=== PATIENT | male | born 1975 | race Two or more races ===

== ENCOUNTER → 2023-11-10 17:25 | Outpatient (REF) | payer OTHER, SELFPAY | LOC: MRI 17:25 | PROVIDERS: ATTENDING PHYSICIAN Internal Medicine | DX: K76.9 Liver disease, unspecified (principal) | CPT/HCPCS: 74183; A9581 ==

== ENCOUNTER → 2024-03-28 13:55 | Outpatient (REF) | payer OTHER, SELFPAY | LOC: DHSLP 13:55 | PROVIDERS: ATTENDING PHYSICIAN Otolaryngology; FAMILY PHYSICIAN Family Medicine | DX: G47.33 Obstructive sleep apnea (adult) (pediatric) (principal); J35.8 Other chronic diseases of tonsils and adenoids; R06.83 Snoring; J34.3 Hypertrophy of nasal turbinates; J34.2 Deviated nasal septum | CPT/HCPCS: 95806 ==

== ENCOUNTER 2024-10-20 20:25 | Emergency (ER) | payer OTHER, SELFPAY ==
[2024-10-20 20:25] VITALS: BMI 32.1
[2024-10-20 20:40] VITALS: BP 131/67
[2024-10-20 21:01] LABS: % Basophils 0.4 % (0-2); % Eosinophils 1.1 % (0-6); % Immature Granulocytes 0.3 % (0-0.5); % Lymphocytes 26.3 % (20.5-51.1); % Monocytes 11.6 % (1.7-9.3); % Neutrophils 60.3 % (42.2-75.2); Absolute Eosinophils 0.1 10^3/uL (0-0.7); Absolute Lymphocytes 1.8 10^3/uL (1.2-3.4); Absolute Monocytes 0.8 10^3/uL (0.1-0.6); Absolute Neutrophils 4.2 10^3/uL (1.4-6.5); Hematocrit 41.7 % (39.0-52.0); Hemoglobin 13.7 g/dL (13.0-18.0); Mean Corp Hgb Conc. 32.9 g/dL (33.0-37.0); Mean Corpuscular Hgb 29.1 pg (27.0-31.0); Mean Corpuscular Volume 88.7 fL (80.0-94.0); Mean Platelet Volume 9.4 fL (7.4-10.4); Nucleated Red Blood Cells % 0 % (-); Platelet Count 280 10^3/uL (130-400); Red Cell Dist. Width 12.9 % (11.5-14.5)
[2024-10-20 21:15] LABS: ALT (SGPT) 16 U/L (0-50); AST (SGOT) 26 U/L (17-59); Albumin 4.4 g/dl (3.5-5.0); Alkaline Phosphatase 72 U/L (38-126); Blood Urea Nitrogen 16 mg/dl (9-20); Calcium 9.6 mg/dl (8.4-10.2); Carbon Dioxide 29 mmol/L (22-30); Chloride 107 mmol/L (98-107); Glucose 99 mg/dl (70-99); Lipase 83 U/L (23-300); Potassium 4.7 mmol/L (3.5-5.1); Sodium 142 mmol/L (135-145); Total Bilirubin 0.8 mg/dl (0.2-1.3); Total Protein 7.9 g/dl (6.3-8.2); eGFR > 60.00
[2024-10-20 21:25] LABS: Troponin I < 0.012 ng/ml
[2024-10-20 22:22] VITALS: BP 144/86
[2024-10-20 22:28] VITALS: BP 144/86
--- NOTE | 2024-10-20 22:47 | ED.GENMED ---
History of Present Illness
General
Chief Complaint: Abdominal Pain
Source: patient
Exam Limitations: none
Time Seen by Provider: 10/20/24 22:22
Nursing documentation reviewed up to this point in time: agreed with
History of Present Illness
History of Present Illness:
Patient presents to ED secondary to persistent abdominal pain since 10 AM this morning. Abdominal pain described as sharp, in his upper abdomen, with radiation to the back, without any alleviating or exacerbate factors. Patient has had meals since
onset of pain, without change in his symptoms. Denies fever or chills. Denies nausea or vomiting. Denies diarrhea. Denies recent change in bowel habits. denies recent change in medications or diet. Denies. History of similar symptoms.
Denies abdominal surgery. Patient was evaluated at urgent care center who referred patient to ED for further evaluation, secondary to significant abdominal pain. Patient does report that he does 'intense workout', and is wondering whether or not
his symptoms may be musculoskeletal.
Review of Systems
Review of Systems
Allergies reviewed?: Yes
All Other Systems: ROS reviewed and negative except as documented in HPI and ROS
Constitutional: Reports no symptoms; Denies fever
Respiratory: Reports no symptoms
Cardiac: Reports no symptoms
ABD/GI: Reports abdominal pain; Denies nausea or vomiting
Musculoskeletal: Reports no symptoms
Skin: Reports no symptoms
Neurological: Reports no symptoms
Phy Exam
Physical Exam
Physical Exam:
Physical Exam
General: no apparent distress, not acutely ill. afebrile
Head: nc/at. eomi
Neck: supple. normal range of motion.
Heart: s1/s2 regular rate and rhythm
Lungs: no acute respiratory distress. clear bilaterally
Abdomen: normal bowel sounds. not tender. no distention
Neuro: alert and oriented x 3. no focal neurological deficits
Skin: no rash
Psychiatric: well kept. interactive and cooperative
Extremities: no edema. no calf tenderness.
Course
Orders/Labs/Results
Orders:
Orders
10/20/24 20:26
Electrocardiogram (*1) Urgent
Reason for Study: Abdominal Pain
EKG- Treatment ONCE
IV Insert/Care/Rem.- Treatment PRN
10/20/24 20:46
Complete Blood Count/With Diff Urgent
Comprehensive Metabolic Panel Urgent
Lipase Urgent
Troponin I Urgent
10/20/24 22:32
US Abdomen Complete/Upper Urgent
Comment:
Reason For Exam: epigastric pain
10/20/24 22:36
Urinalysis Reflex To Culture Urgent
Date Specimen was Collected: 10/20/24
Time Specimen was Collected: 22:26
Urine Microscopic Reflex Cult Urgent
10/21/24 00:58
CT Abd/pel Without Iv Or Oral Urgent
Comment:
Reason For Exam: abd pain w hematuria
Abnormal Lab Results
10/20/24 10/20/24
20:46 22:36
MCHC 32.9 L g/dL
(33.0-37.0)
Absolute Monos (auto) 0.8 H 10^3/uL
(0.1-0.6)
Monocytes % 11.6 H %
(1.7-9.3)
Ur Occult Blood Reflex 2+ A
(Negative)
Urine RBC 7-10 A /HPF
(0-2)
Urine Bacteria (Reflex) Few A
(Negative)
10/20/24 20:46
10/20/24 20:46
Vital Signs
Initial and Last Documented VS:
Initial Vital Signs
Temp Pulse Resp BP Pulse Ox
98.3 F 64 18 131/67 100
10/20/24 20:40 10/20/24 20:40 10/20/24 20:40 10/20/24 20:40 10/20/24 20:40
Last Documented Vital Signs
Temp Pulse Resp BP Pulse Ox
98.3 F 61 18 134/83 97
10/20/24 20:40 10/20/24 23:15 10/20/24 23:15 10/21/24 02:10 10/20/24 23:15
MDM/Problems Addressed
MDM/Problems Addressed:
Patient remains hemodynamically stable without acute distress during observation. Blood work and abdominal ultrasound unremarkable. However, urinalysis does reveal blood with RBCs noted on differential. As such, CT abdomen pelvis ordered to
evaluate for potential kidney stone as etiology behind his abdominal pain.
CT abdomen pelvis report reviewed and discussed with patient. No acute findings noted. Patient will be discharged home in stable condition, with recommendation to take Tylenol/Motrin for symptomatic relief, along with PCP follow-up as needed.
Advised to return to ED with recurrent/worsening symptoms. Patient expresses understanding at time of discharge
*Pulse Oximetry
Patient hypoxic: no
*Critical Care Note
Total Time (30-74mins, 75-104mins- exclusive of procedures): Not Applicable
ED Attending Note
-
Portions of this chart may have been created with voice recognition software.� Occasional wrong word or��sound alike� substitutions may have occurred due to the inherent limitations of voice recognition software.
Discharge Plan
Departure
Patient Disposition: Home (Routine Discharge)
Date of Disposition: 10/21/24
Time of Disposition: 02:01
Patient with high blood pressure during this ER visit?: Yes
Condition: Good
Discharge Problem:
Abdominal pain
Instructions: Abdominal Pain
Referrals:
Elliot Ballesteros DO [Family Provider, Family Practice]
Activity Restrictions/Additional Instructions:
As discussed, please follow-up with your primary care physician with any further concerns. In ED, blood work and multiple imaging studies did not reveal any abnormal findings.
Interventions
Interventions:
*Risk Screen - Suicide Last Done: 10/20/24 20:40
*General Assessment Last Done: 10/20/24 22:29
*Neglect/Abuse Screening Last Done: 10/20/24 20:40
*ED- Fall Risk Assessment Last Done: 10/20/24 22:29
*Nursing Disposition Last Done: 10/21/24 02:16
UK-Qcxjxy-Iplchagkqq Assessment Last Done: 10/20/24 22:29
Discharge Date and Time
Discharge Date/Time: 10/21/24 02:25
Print Language: SAMI
[2024-10-20 23:52] LABS: Urine Albumin Negative (Neg - Trace); Urine Bilirubin Negative (Negative); Urine Character Clear (Clear); Urine Color Yellow; Urine Glucose Negative (Negative); Urine Ketone Negative (Negative); Urine Leukocyte Negative (Negative); Urine Nitrite Negative (Negative); Urine Occult Blood 2+ (Negative); Urine Specific Gravity 1.005 (<1.030); Urine Urobilinogen Negative (Neg - 1+)
[2024-10-21 00:49] LABS: Urine Bacteria Few (Negative); Urine White Cell 0-2 /HPF (0-5)
[2024-10-21 02:10] VITALS: BP 134/83
== END 2024-10-21 02:25 | disposition home or self-care (01) ==
LOC: EMR 20:25
PROVIDERS: EMERGENCY PHYSICIAN Emergency Medicine; FAMILY PHYSICIAN Family Medicine
DX: R10.9 Unspecified abdominal pain (principal); R03.0 Elevated blood-pressure reading, without diagnosis of hypertension
CPT/HCPCS: 99285; 74176; 76700; 80053; 81003; 81015; 83690; 84484; 85025; 93005

== ENCOUNTER 2024-11-04 13:20 | Emergency (ER) | payer OTHER, SELFPAY ==
[2024-11-04 13:22] VITALS: BP 144/81
[2024-11-04 13:42] LABS: % Basophils 0.1 % (0-2); % Eosinophils 2.1 % (0-6); % Immature Granulocytes 0.6 % (0-0.5); % Lymphocytes 11.1 % (20.5-51.1); % Monocytes 15.4 % (1.7-9.3); % Neutrophils 70.7 % (42.2-75.2); Absolute Eosinophils 0.2 10^3/uL (0-0.7); Absolute Immature Granulocytes 0.1 10^3/uL (0-0.05); Absolute Monocytes 1.4 10^3/uL (0.1-0.6); Absolute Neutrophils 6.3 10^3/uL (1.4-6.5); Hematocrit 35.6 % (39.0-52.0); Hemoglobin 11.6 g/dL (13.0-18.0); Mean Corp Hgb Conc. 32.6 g/dL (33.0-37.0); Mean Corpuscular Hgb 28.3 pg (27.0-31.0); Mean Corpuscular Volume 86.8 fL (80.0-94.0); Nucleated Red Blood Cells % 0 % (-); Platelet Count 326 10^3/uL (130-400); White Blood Cell Count 8.9 10^3/uL (4.8-10.8)
[2024-11-04 14:06] LABS: ALT (SGPT) 57 U/L (0-50); AST (SGOT) 56 U/L (17-59); Albumin 3.2 g/dl (3.5-5.0); Alkaline Phosphatase 185 U/L (38-126); Blood Urea Nitrogen 14 mg/dl (9-20); Calcium 8.6 mg/dl (8.4-10.2); Carbon Dioxide 26 mmol/L (22-30); Chloride 103 mmol/L (98-107); Glucose 125 mg/dl (70-99); Potassium 4.4 mmol/L (3.5-5.1); Sodium 137 mmol/L (135-145); Total Bilirubin 3.1 mg/dl (0.2-1.3); Total Protein 6.7 g/dl (6.3-8.2); eGFR > 60.00
[2024-11-04 14:29] LABS: Urine Albumin 3+ (Neg - Trace); Urine Bilirubin 1+ (Negative); Urine Character Clear (Clear); Urine Color Yellow; Urine Glucose Negative (Negative); Urine Ketone Negative (Negative); Urine Leukocyte Negative (Negative); Urine Nitrite Negative (Negative); Urine Occult Blood 4+ (Negative); Urine Urobilinogen 2+ (Neg - 1+)
[2024-11-04 14:56] LABS: Urine Amorphous Seen; Urine Red Blood Cell >100 /HPF (0-2)
[2024-11-04 15:02] LABS: Urine White Cell 0-2 /HPF (0-5)
[2024-11-04 15:03] LABS: Urine Bacteria Few (Negative)
[2024-11-04 15:19] VITALS: BP 113/67
[2024-11-04] MEDS: NSS 1000 IV (17:51)
[2024-11-04] MEDS: TYLENOL 650 MG PO (17:57)
[2024-11-04 18:28] VITALS: BMI 29.4
--- NOTE | 2024-11-04 19:00 | ED.GENMED ---
History of Present Illness
General
Chief Complaint: Fever
Source: patient
Exam Limitations: none
Time Seen by Provider: 11/04/24 16:51
History of Present Illness
History of Present Illness:
49-year-old male presents complaining of persistent fever myalgias fatigue. He was seen here about 2 weeks ago for abdominal pain had a CT scan of his abdomen at that point which was negative. Abdominal pain has since resolved. He was seen at the
urgent care several times. He was seen at the urgent care today who did an x-ray of his chest and was diagnosed with pneumonia. They also sent him here for evaluation for abnormal blood work. He was told his liver functions were elevated.
Phy Exam
Physical Exam
Physical Exam:
General: Well-appearing male no acute respiratory distress
HEENT: Normocephalic atraumatic
Heart: Regular rate and rhythm
Lungs: Clear no wheeze
Abdomen is soft nontender
Extremities: No cyanosis
Course
Orders/Labs/Results
Orders:
Orders
11/04/24 13:35
Complete Blood Count/With Diff Urgent
Comprehensive Metabolic Panel Urgent
11/04/24 13:36
Urinalysis Reflex To Culture Urgent
Date Specimen was Collected: 11/04/24
Time Specimen was Collected: 13:27
Urine Microscopic Reflex Cult Urgent
11/04/24 17:23
0.9% Sodium Chloride 1000 ml [Nss] 1,000 ml IV BOLUS
11/04/24 17:25
Acetaminophen [Tylenol] 650 mg PO NOW STA
11/04/24 17:50
Lyme Progressive Urgent
Babesia Smear [Blood Parasites] Urgent
TOM Source: Blood/Venous
Specimen Description:
11/04/24 18:47
Doxycycline [Vibramycin] 100 mg PO NOW STA
Abnormal Lab Results
11/04/24 11/04/24
13:35 13:36
RBC 4.10 L 10^6/uL
(4.70-6.10)
Hgb 11.6 L g/dL
(13.0-18.0)
Hct 35.6 L %
(39.0-52.0)
MCHC 32.6 L g/dL
(33.0-37.0)
Abs Immat Gran (auto) 0.1 H 10^3/uL
(0-0.05)
Absolute Lymphs (auto) 1.0 L 10^3/uL
(1.2-3.4)
Absolute Monos (auto) 1.4 H 10^3/uL
(0.1-0.6)
Immature Gran % 0.6 H %
(0-0.5)
Lymphocytes % 11.1 L %
(20.5-51.1)
Monocytes % 15.4 H %
(1.7-9.3)
Glucose 125 H mg/dl
(70-99)
Total Bilirubin 3.1 H mg/dl
(0.2-1.3)
ALT 57 H U/L
(0-50)
Alkaline Phosphatase 185 H U/L
(38-126)
Albumin 3.2 L g/dl
(3.5-5.0)
Ur Occult Blood Reflex 4+ A
(Negative)
Urine Bilirubin 1+ A
(Negative)
Urine Urobilinogen 2+ A
(Neg - 1+)
Urine RBC >100 A /HPF
(0-2)
Urine Bacteria (Reflex) Few A
(Negative)
Urine Albumin (Reflex) 3+ A
(Neg - Trace)
11/04/24 13:35
11/04/24 13:35
Vital Signs
Initial and Last Documented VS:
Initial Vital Signs
Temp Pulse Resp BP Pulse Ox
98.8 F 103 18 144/81 95
11/04/24 13:22 11/04/24 13:22 11/04/24 13:22 11/04/24 13:22 11/04/24 13:22
Last Documented Vital Signs
Temp Pulse Resp BP Pulse Ox
100.9 F H 92 18 113/67 96
11/04/24 15:19 11/04/24 15:19 11/04/24 15:19 11/04/24 15:19 11/04/24 15:19
MDM/Problems Addressed
Differential Diagnosis Includes:
Fever fatigue myalgias recent diagnosis of pneumonia although clinically no respiratory distress or significant cough. Labs reviewed today bilirubin is 3.1 with overall relatively normal transaminases. White count normal hemoglobin did drop
slightly from last visit. Question possible tickborne illness. Babesiosis smear ordered and Lyme test ordered fluids ordered
*Pulse Oximetry
SaO2: 96
Oxygen Mode of Delivery: Room air
Patient hypoxic: no
*Critical Care Note
Total Time (30-74mins, 75-104mins- exclusive of procedures): Not Applicable
Update Note
Update Note:
White count normal hemoglobin down to 11.6 which is decreased from prior visit 2 weeks ago. Bilirubin is slightly elevated but transaminases are normal. CT scan from last visit negative for acute findings including gallstones. I reviewed x-ray of
the chest that was performed today at the urgent care which is read as a left lingular pneumonia. Clinically patient does not have significant cough. Question possible tickborne illness as vitamin differential given elevated LFTs and fever.
Parasite smear was performed which was preliminary was negative. Lyme screen is pending but given the pneumonia on the x-ray of potential tickborne illness we will start on doxycycline. He received his first dose here. No indication for
admission. Stable for discharge
ED Attending Note
-
Portions of this chart may have been created with voice recognition software.� Occasional wrong word or��sound alike� substitutions may have occurred due to the inherent limitations of voice recognition software.
Discharge Plan
Departure
Patient Disposition: Home (Routine Discharge)
Date of Disposition: 11/04/24
Time of Disposition: 19:02
Patient with high blood pressure during this ER visit?: No
Discharge Problem:
Fever
Instructions: Fever, Adult (DC), Pneumonia
Prescriptions:
New
doxycycline hyclate 100 mg capsule
100 mg PO BID Qty: 28 0RF
Referrals:
Elliot Ballesteros DO [Family Provider, Family Practice]
Activity Restrictions/Additional Instructions:
Take doxycycline as directed. Stay hydrated. Continue with ibuprofen or Tylenol for fever or pain. Return here for worsening symptoms otherwise follow-up with your doctor
Interventions
Interventions:
*Risk Screen - Suicide Last Done: 11/04/24 13:22
*General Assessment Last Done: 11/04/24 13:22
*Neglect/Abuse Screening Last Done: 11/04/24 13:22
ED- Neurological Assessment Last Done: 11/04/24 18:28
ED-Skin Assessment Last Done: 11/04/24 18:28
Discharge Date and Time
Print Language: MONGOLIAN
[2024-11-04] MEDS: VIBRAMYCIN 100 MG PO (19:13)
[2024-11-04 19:16] VITALS: BP 115/68
[2024-11-07 14:02] LABS: Lyme Antibody Screen, EIA Presump. Positive (Negative)
== END 2024-11-04 19:19 | disposition home or self-care (01) ==
LOC: EMR 13:20
PROVIDERS: Emergency Medicine; Physician Assistant; EMERGENCY PHYSICIAN Emergency Medicine; FAMILY PHYSICIAN Family Medicine
DX: R50.9 Fever, unspecified (principal)
CPT/HCPCS: 99283; 96360; 80053; 81003; 81015; 85025; 86617; 86618; 87015; 87207

== ENCOUNTER 2024-11-08 13:02 | Inpatient (IN) | payer OTHER, SELFPAY ==
[2024-11-08 10:05] VITALS: BP 125/81
[2024-11-08 10:50] VITALS: BMI 29.0
[2024-11-08 10:55] LABS: Hematocrit 35.0 % (39.0-52.0); Hemoglobin 11.7 g/dL (13.0-18.0); Mean Corp Hgb Conc. 33.4 g/dL (33.0-37.0); Mean Corpuscular Volume 84.3 fL (80.0-94.0); Nucleated Red Blood Cells % 0.3 % (-); Platelet Count 199 10^3/uL (130-400); Red Cell Dist. Width 14.4 % (11.5-14.5)
[2024-11-08 10:56] LABS: Urine Character Clear (Clear)
[2024-11-08 11:11] LABS: INR 1.34; PT 16.8 Sec (11.4-14.6)
[2024-11-08 11:13] VITALS: BP 127/74
--- NOTE | 2024-11-08 11:19 | ED.GENMED ---
History of Present Illness
General
Chief Complaint: Weakness
Source: patient
Time Seen by Provider: 11/08/24 10:56
History of Present Illness
History of Present Illness:
The patient is a 49-year-old male with a history of Lyme disease, presenting with epigastric pain, jaundice, fatigue, and fever. Approximately two weeks ago, while at his [facility] outpatient surgery discharge area, the patient began experiencing severe
epigastric pain radiating to the back. The patient had thought the pain was due to not eating enough and found some relief after eating a substantial meal, though the pain persisted. Fatigue followed, and he eventually sought care at an urgent care
facility, which led to a hospital visit. Blood work, a CT scan, and ultrasounds were performed, initially pointing towards concerns about the pancreas and gallbladder.
After a few days of rest, the patients symptoms subsided. However, upon resuming activities, he developed fever, chills, and dark urine coinciding with increased ambient heat exposure. The patient measured his temperature at home, noting it reached
approximately 100�F, although he suspects his home thermometer may underestimate. Home COVID tests were negative.
Returning to urgent care and was then sent back to the ER where lab results indicated elevated bilirubin, blood, and protein in urine. Doxycycline was administered pending Lyme disease retesting. The patient suspects the doxycycline may be
contributing to recurrent abdominal pain. Pt was treated for Lyme in 2022 with doxy and he tolerated it at that time. Additionally, no recent travel, recreational drug use, or dietary risks like mushroom foraging was reported.
The patient reports occasional shortness of breath and presents with noticeable changes in complexion. He follows up with his physician routinely. Pt has had endoscopies in the past for epigastric pain as well as abdominal MRI which showed hepatic
hemangiomas.
Patient was not taking any [id number] prescription medications prior to the onset of his symptoms 3 weeks ago. The only medication he has taken since then is Tylenol a couple times a day with a maximum ingestion of about 2 g a day, Advil and
the doxycycline that was prescribed. Patient denies any significant alcohol use. He denies recreational drug use.
Phy Exam
Physical Exam
Physical Exam:
General: Awake, Alert, Oriented X3. Mildly tachypneic
Vitals: Mildly tachycardic
Head: Atraumatic
Eyes: Pupils equal, EOMI, scleral icterus noted
Throat: Airway intact, no exudates dry mucosa
Neck: Trachea midline
Lungs: Clear and equal b/l
Heart: Regular rate, no murmurs
Abd: Soft, mild epigastric tenderness, no pulsatile mass
Neuro: Nonfocal
Skin: Warm, dry, no rash, positive jaundice
Extremities: pulses equal b/l, no edema
Course
Orders/Labs/Results
Orders:
Orders
11/08/24 10:48
Acetaminophen Urgent
Comment: ADD ON
CMP [Comprehensive Metabolic Panel] Urgent
Complete Blood Count/With Diff Urgent
Direct Bilirubin Urgent
Comment: ADD ON
Ferritin Urgent
Hepatitis A IgM Antibody Urgent
Hepatitis B Core Ab, IgM Urgent
Hepatitis B Surface Antibody Urgent
Hepatitis B Surface Antigen Urgent
Hepatitis C Antibody Urgent
Iron Urgent
PT/INR [Prothrombin Time] Urgent
Total Iron Binding Urgent
Urinalysis Reflex To Culture Urgent
Date Specimen was Collected: 11/08/24
Time Specimen was Collected: 10:35
Urine Microscopic Reflex Cult Urgent
11/08/24 10:51
Legionella Urinary Antigen Stat
TOM Source: Urine
Specimen Description:
11/08/24 11:14
Add On- LAB Urgent
Tests Added?: acetaminophen level
11/08/24 11:15
CR Chest - 2 Views Urgent
Comment:
Reason For Exam: sob
11/08/24 11:20
Ammonia Urgent
Venous Blood Gas Urgent
%Oxygen/Room Air: ra
11/08/24 12:34
Admit/Transfer Patient As Directed
Co-Sign Provider:
Level of Care: Inpatient admission
Assign to:: Medical/Surgical
Physician / Group: kitty
Diagnosis: progressive jaundice
Reason for Hospitalization: progressive jaundice
Expected length of stay greater than two midnights?: Yes
ELOS- Estimated Length of Stay in days: 2
I certify the patient meets the requirements for IP care: Yes
Code Status As Directed
Resuscitation Status: Full Code
PRN Pain Medication Management As Directed
May give lesser potent ordered pain med per pt: Yes
preference::
Protocol:: Medication orders for pain may be administered in a
manner that supports deferring to patient preference
when the pt is:
- Requesting an ordered lesser potent pain medication.
Least to most potent pain medications are defined
as: acetaminophen < NSAID < tramadol < opioids
(morphine, oxycodone, hydromorphone).
- Requesting a lesser dose of the same medication IF
ORDERED.
- Requesting a less intrusive route of administration
if both routes are prescribed by the provider (PO <
IV).
11/08/24 12:46
Add On- LAB Stat
Tests Added?: direct bilirubin
GASTROINTESTINAL CONSULT Routine
Consulting Provider: Tahira Mejía
Was physician already notified: Yes
11/08/24 12:56
Add On- LAB Urgent
Tests Added?: Urine legionella AG
11/08/24 13:10
Blood Culture Urgent
TOM Source: Blood/Venous
Specimen Description:
11/08/24 13:11
JANY, IgG Reflex to HEp-2 [S] Urgent
[id number] [S] Urgent
CMV IgG Antibody [S] Stat
CMV IgM Antibody [S] Stat
Ceruloplasmin [S] Urgent
Ehrlichia chaffeensis Ab Panel [S] Urgent
Erick-Roy Virus Ab Panel I [S] Stat
Liver-Kidney Microsome Ab-IgG [S] Urgent
Mitochondrial M2 Ab, IgG [S] Urgent
Soluble Liver Antigen Ab [S] Urgent
Babesia Smear [Blood Parasites] Urgent
TOM Source: Blood/Venous
Specimen Description:
11/08/24 14:07
Ibuprofen [Motrin] 400 mg PO Q8HPRN PRN mild pain
11/08/24 Dinner
Regular
At Your Request: Full Participation
11/08/24 15:27
0.9% Sodium Chloride 1000 ml [Nss] 1,000 ml IV 80 mls/hr
Acetaminophen [Tylenol] 650 mg PO Q4HPRN PRN
Ondansetron Injectable [Zofran] 4 mg IV Q6HPRN PRN
11/08/24 15:27
Activity As Directed
Activity Level: As Tolerated
Sequential Compression Device [Pneumatic Compression Sleeves] As Directed
Type: Knee high
Vital Signs As Directed
Frequency: Per unit guidelines
DX Deep Vein Thrombosis Video Routine
DX Deep Vein Thrombosis Video Routine
11/08/24 20:00
Doxycycline [Vibramycin] 100 mg PO BID
11/09/24 06:00
Complete Blood Count/With Diff IN AM
Comprehensive Metabolic Panel IN AM
Abnormal Lab Results
11/08/24 11/08/24
10:48 11:20
WBC 12.0 H 10^3/uL
(4.8-10.8)
RBC 4.15 L 10^6/uL
(4.70-6.10)
Hgb 11.7 L g/dL
(13.0-18.0)
Hct 35.0 L %
(39.0-52.0)
Abs Immat Gran (auto) 0.1 H 10^3/uL
(0-0.05)
Absolute Neuts (auto) 9.1 H 10^3/uL
(1.4-6.5)
Absolute Monos (auto) 1.6 H 10^3/uL
(0.1-0.6)
Immature Gran % 1.2 H %
(0-0.5)
Neutrophils % 75.9 H %
(42.2-75.2)
Lymphocytes % 9.6 L %
(20.5-51.1)
Monocytes % 13.0 H %
(1.7-9.3)
PT 16.8 H Sec
(11.4-14.6)
VBG pCO2 34 L mmHg
(35-48)
VBG pO2 76 H mmHg
(30-50)
VBG HCO3 19.2 L mmol/L
(22-27)
Carbon Dioxide 17 L mmol/L
(22-30)
BUN 29 H mg/dl
(9-20)
Glucose 171 H mg/dl
(70-99)
Calcium 7.4 L mg/dl
(8.4-10.2)
Iron 23 L ug/dl
(49-181)
TIBC 174 L ug/dl
(261-462)
% Saturation 13 L %
(20-50)
Ferritin 572.0 H ng/ml
(17.9-464.0)
Total Bilirubin 9.9 H mg/dl
(0.2-1.3)
Direct Bilirubin 8.9 H mg/dl
(0.0-0.4)
AST 124 H U/L
(17-59)
ALT 82 H U/L
(0-50)
Alkaline Phosphatase 200 H U/L
(38-126)
Ammonia < 9 L umol/L
(9-30)
Total Protein 6.0 L g/dl
(6.3-8.2)
Albumin 2.7 L g/dl
(3.5-5.0)
Ur Occult Blood Reflex 4+ A
(Negative)
Urine Bilirubin 2+ A
(Negative)
Urine Urobilinogen 2+ A
(Neg - 1+)
Urine RBC 7-10 A /HPF
(0-2)
Urine Albumin (Reflex) 2+ A
(Neg - Trace)
Acetaminophen < 10 L ug/ml
(10-30)
11/08/24 10:48
11/08/24 10:48
Vital Signs
Initial and Last Documented VS:
Initial Vital Signs
Temp Pulse Resp BP Pulse Ox
98.0 F 99 18 125/81 98
11/08/24 10:05 11/08/24 10:05 11/08/24 10:05 11/08/24 10:05 11/08/24 10:05
Last Documented Vital Signs
Temp Pulse Resp BP Pulse Ox
98.0 F 92 20 112/76 94
11/08/24 10:05 11/08/24 12:00 11/08/24 12:00 11/08/24 14:03 11/08/24 14:03
MDM/Problems Addressed
Differential Diagnosis Includes:
Biliary obstruction via stone or mass, autoimmune hepatitis, toxin exposure
MDM/Problems Addressed:
Patient presents with progressive jaundice. Alert and shows no evidence of encephalopathy. His INR is not significantly elevated. His platelet count is normal. Unclear what the source of his liver dysfunction is. Patient will require
hospitalization for further imaging and testing. Message sent to gastroenterology to get them on board early.
*Radiology
Radiology exam reviewed: radiology read reviewed
*Pulse Oximetry
SaO2: 95
Oxygen Mode of Delivery: Room air
Patient hypoxic: no
*Critical Care Note
Total Time (30-74mins, 75-104mins- exclusive of procedures): Not Applicable
ED Attending Note
-
Portions of this chart may have been created with voice recognition software.� Occasional wrong word or��sound alike� substitutions may have occurred due to the inherent limitations of voice recognition software.
Discharge Plan
Departure
Patient Disposition: Admit
Date of Disposition: 11/08/24
Time of Disposition: 11:46
Admit to: Med/Surg
Presentation/result/management discussed w/ accepting MD/DO: Hospitalist
Condition: Fair
Discharge Problem:
Hyperbilirubinemia
Interventions
Interventions:
*Risk Screen - Suicide Last Done: 11/08/24 10:05
*General Assessment Last Done: 11/08/24 10:05
*Neglect/Abuse Screening Last Done: 11/08/24 10:05
*ED- Fall Risk Assessment Last Done: 11/08/24 10:52
*ED COVID-19 Vaccine History Last Done: 11/08/24 10:52
ED- Cardiac Assessment Last Done: 11/08/24 10:55
ED- Neurological Assessment Last Done: 11/08/24 10:55
ED- Pulmonary Assessment Last Done: 11/08/24 10:55
[2024-11-08 11:24] LABS: ALT (SGPT) 82 U/L (0-50); AST (SGOT) 124 U/L (17-59); Albumin 2.7 g/dl (3.5-5.0); Alkaline Phosphatase 200 U/L (38-126); Blood Urea Nitrogen 29 mg/dl (9-20); Calcium 7.4 mg/dl (8.4-10.2); Carbon Dioxide 17 mmol/L (22-30); Chloride 106 mmol/L (98-107); Estimated Creatinine Clearance 69 ml/min; Glucose 171 mg/dl (70-99); Potassium 4.2 mmol/L (3.5-5.1); Sodium 135 mmol/L (135-145); Total Protein 6.0 g/dl (6.3-8.2); eGFR > 60.00
[2024-11-08 11:27] LABS: Venous Blood Gas B.E. -5.5 mmol/L (-4 to +4); Venous Blood Gas O2 Sat % 96.4 %
[2024-11-08 11:28] LABS: Acetaminophen < 10 ug/ml (10-30)
[2024-11-08 11:39] LABS: Ammonia < 9 umol/L (9-30)
[2024-11-08 12:13] VITALS: BP 113/74
--- NOTE | 2024-11-08 12:38 | HPS.HSE ---
Family Physician
-
Family Physician: Elliot Ballesteros,
Chief Complaint
-
jaundice
History of Present Illness
49-year-old male past medical history of Lyme disease, presenting with epigastric pain, jaundice and fatigue and fever. 2 weeks ago he began experiencing severe epigastric pain rating to the back. He that the pain was due to not eating and he got
relief after eating although the pain persisted. Fatigue started afterwards and he went to urgent care and eventually came to emergency room here on 10/[address] scan, and abdominal ultrasound which were unremarkable.
After few days abdominal pain subsided. Upon resuming activities he developed fever and chills and dark urine, persistent fatigue and shortness of breath occasional dry cough. His temperature was 100 degrees.
He does frequently travel outside in his neighborhood and backyard but denies any tick bites or rashes.
He was sent back to the emergency room per ER showed elevated bilirubin, blood and protein in the urine. He was found to have pneumonia. He also had rapid Lyme test that was positive attributes to prior Lyme's disease. He was started on
doxycycline for pneumonia. He is having loose stools while on doxycycline.
He has had endoscopy in the past for epigastric pain in 2022 which were negative. He had colonoscopy which was negative. Abdominal MRI which showed hepatic angiomas. He was not taking any [id number]-[id number] or prescription medications prior to the
onset of symptoms 3 weeks ago. Only medication he is taking is Tylenol a few times with maximum ingestion of 2 g a day, Advil and doxycycline that was prescribed. He denies alcohol use. Denies any drugs. Denies smoking.
His mother and her sister have pancreatic cancer.
Medical History
Past Medical History
Past Medical History: Reports Other (Lyme disease)
Past Surgical History: Reports None
Social History
Tobacco: Non-smoker
Alcohol: None
Drug: None
Family History
Family History: Not pertinent
Allergies / Home Medications
Allergies reflects when Allergies were last updated in [facility].
Home Medications with original date entered in [facility]
Allergy/Medication List:
Allergies
Allergy/AdvReac Type Severity Reaction Status Date / Time
Sulfa (Sulfonamide Allergy Unknown Verified 11/08/24 10:05
Antibiotics)
Home Medications
doxycycline hyclate 100 mg capsule 100 mg PO BID #28 caps 11/04/24
ibuprofen 200 mg tablet (Advil) 400 mg PO Q8HPRN PRN mild pain 11/08/24
Review of Systems
-
History Source: Patient
A 12 point ROS was completed and negative except as noted: Yes
Constitutional: Reports No Symptoms
EENT: Reports No Symptoms
Respiratory: Reports See HPI
Cardiac: Reports No Symptoms
Abdomen/GI: Reports See HPI
: Reports See HPI
Musculoskeletal: Reports No Symptoms
Skin: Reports No Symptoms
Neurological: Reports No Symptoms
Endocrine: Reports No Symptoms
Hematologic/Lymphatic: Reports No Symptoms
Psych: Reports No Symptoms
Physical Exam
Vital Signs
Vital Signs
Temp Pulse Resp BP Pulse Ox
98.0 F 92 20 113/74 95
11/08/24 10:05 11/08/24 12:00 11/08/24 12:00 11/08/24 12:13 11/08/24 12:15
Physical Exam
General: Well Developed, Well Nourished and No Apparent Distress
HEENT: NormoCephalic, Moist mucous membranes and Atraumatic
Respiratory: Clear
Cardiac: S1/S2 and Regular Rhythm; No Murmur or Rub
GI: Soft, Non Tender, Non Distended and Normal Bowel Sounds; No Organomegaly
Rectal: Deferred by Provider
Musculoskeletal: No Clubbing, No Cyanosis and No Edema
Skin: No Rash
Neuro: Nonfocal/grossly intact
Laboratory Results
-
11/08/24 10:48
11/08/24 10:48
Laboratory Results
PT 16.8 Sec (11.4-14.6) H 11/08/24 10:48
INR 1.34 11/08/24 10:48
Total Bilirubin 9.9 mg/dl (0.2-1.3) H 11/08/24 10:48
AST 124 U/L (17-59) H 11/08/24 10:48
ALT 82 U/L (0-50) H 11/08/24 10:48
Alkaline Phosphatase 200 U/L (38-126) H 11/08/24 10:48
Data Reviewed
-
Lab Data: Labs Reviewed by me
Old Records: Reviewed
Impression/Plan
-
IMPRESSION:
PLAN:
# Progressive jaundice unclear if obstructive process versus autoimmune hepatitis versus other etiologies
- Tylenol level under 10
- Recent CT scan on 10/21 negative
- Recent ultrasound negative
-Check MRCP
-Check Babesia smear, ehrlichiosis
-Check blood cultures
-IV fluids
-Likely needs workup for autoimmune hepatitis and PBC, similar etiologies
- GI consulted
# Resolving left lingular pneumonia
-Chest x-ray shows the pneumonia resolving
- Continue doxycycline
# Positive Lyme screen
# History of prior Lyme's disease
- Lyme screen from 11/04 is presumptive positive likely from prior infection
-No joint pains
- Western blot and IgM pending
- Continue doxycycline which was started 3 days ago on 11/05 for 2 weeks
# Microscopic hematuria likely from underlying liver disease
- As per urinalysis
- Urinalysis also shows albumin
History of hepatic hemangiomas
History of prior epigastric pain
- Worked up with endoscopy which was negative
Full code
DVT prophylaxis-SCDs
Regular diet
--- NOTE | 2024-11-08 13:10 | CM ---
CM reviewed chart and met with pt and bedside in ED.
Lives with in 2 story home, 2 [address], first floor half BA, second floor BR/BA
Independent at baseline , no DME, no hx VN/SNF
PCP: Elliot Ballesteros
Pharmacy: [facility]
Discharge plan: Anticipate home, no needs
[2024-11-08 13:20] LABS: Iron 23 ug/dl (49-181)
[2024-11-08 13:29] LABS: Total Iron Binding Capacity 174 ug/dl (261-462)
[2024-11-08 14:03] VITALS: BP 112/76
[2024-11-08 14:03] LABS: Ferritin 572.0 ng/ml (17.9-464.0)
[2024-11-08] MEDS: MOTRIN 400 MG PO ×2 (14:11→22:47)
--- NOTE | 2024-11-08 14:13 | CON.GI ---
Addendum entered and electronically signed by Tahira Mejía MD 11/08/24 19:45:
I saw and examined the patient.
The residents note was reviewed and I agree with the note.
Comment:
Pt is a 49 y/o man with a hx of multiple cutaneous lipomas, hepatic hemangiomas and cysts, lymes dx who was not feeling well for several weeks with some epigastric pain similar to previous episodes (w/u in past with imaging and egd). He went to
urgent care twice then admitted when he was found to be jaundice also with blood in urine, pneumonia. on doxycycline after symptoms
abd: soft
icteric
oriented
impression
abnl lfts
jaundice
abd pain
plan;
follow lfts and INR closely
full w/u for underlying infectious and noninfectious causes of abnl liver tests/jaundice
MRI with MRCP
urine drug screen
Original Note:
Consultation
-
Date/Time Consultation Requested: 11/08/2024
Date/Time Consultation Performed: 11/08/2024
Requesting Provider: Irma Ayon
Performing Provider: Kaila Mejía
Reason for Consultation: Epigastric pain associated with elevated liver enzymes
Medical History
Chief Complaint / HPI
Chief Complaint: Abdominal pain in epigastric region
History of Present Illness:
Patient is a 49-year-old male, with prior history of multiple lipomas, hepatic hemangiomas and cysts, prior history of Lyme's disease treated in 2019, IBS, who was in usual state of health 2 weeks ago when he developed epigastric pain, which he
initially attributed to not eating anything that morning but it persisted, it radiated to the back but there was no nausea, vomiting, diarrhea, or any other issues so he went to urgent care who then referred him to the ER where he had his abdominal
imaging done that did not reveal anything significant except stable multiple liver hemangioma. He was trying to take it slow and rest, he did had a day where he worked out and humidity for cleaning his garage and that made him feel sick again. He
tried to cope with it but started to feel very tired, fatigued and had developed shortness of breath, low-grade fever with chills and sweats and he felt dehydrated so he went to the urgent care clinic where urine analysis was done that showed
urobilinogen, moderate bilirubin and large amount of blood. In addition a chest x-ray was done and he was diagnosed with pneumonia for which he was prescribed doxycycline 100 mg twice daily.
Today, he was supposed to have an ER follow-up visit with the primary care physician but he noticed that he was having the epigastric pain similar to that initiated his GI workup including the endoscopy and abdominal imaging. In addition he felt
that his urine was very dark in color and he was having multiple episodes of loose stools that were very light in color. He also had nausea but no vomiting. He was evaluated in the ER and his liver enzymes were elevated and blood was noticed in
urine as well.
He does not take any pain medications except for Tylenol. He drinks 2-3 times a year. Has family history of pancreatic cancer in 2 family members
GI consulted for acute onset epigastric pain associated with elevated liver enzymes.
Past Medical History
Past Medical History: Psychiatric (Depression/anxiety) and Other (Lyme disease in 2020, multiple hemangiomas/cysts in liver, multiple lipomas, peritonsillar abscess, sleep apnea)
Past Surgical History: None
Social History
Tobacco: Non-Smoker
Alcohol: Occasional
Drug: None
Personal:
Living: With Family (3 children, 2 sons and 1 daughter)
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
Family History
Family History: Other (Family history of pancreatic cancer in aunt and mother, lung cancer in mother)
Allergies / Home Medications
Allergy/AdvReac Type Severity Reaction Status Date / Time
Sulfa (Sulfonamide Allergy Unknown Verified 11/08/24 10:05
Antibiotics)
�Medication �Instructions �Recorded
doxycycline hyclate 100 mg capsule 100 mg PO BID #28 caps 11/04/24
ibuprofen 200 mg tablet (Advil) 400 mg PO Q8HPRN PRN mild pain 11/08/24
Review of Systems
-
All other systems: A 12 pt ROS was Negative except as stated above in HPI
Vital Signs
Temp Pulse Resp BP Pulse Ox
98.0 F 92 20 113/74 95
11/08/24 10:05 11/08/24 12:00 11/08/24 12:00 11/08/24 12:13 11/08/24 12:15
Physical Exam
Exam
General: Well Developed, Well Nourished, No Apparent Distress and Other (Appearing jaundiced and pale)
HEENT: Moist Mucous Membranes and Other (Pale)
Respiratory: Clear; Negative Wheezes or Rales
Cardiac: S1/S2 and Regular Rhythm; Negative Murmur or Rub
GI: Soft, Non Distended, Normal Bowel Sounds and Tender (Mildly tender in epigastric region)
Musculoskeletal: No Clubbing, No Cyanosis and No Edema
Skin: Warm and Dry
Neuro: Awake and Oriented
Hematologic/Lymphatic: No Lymphadenopathy
Psych: Calm
Results
WBC 12.0 10^3/uL (4.8-10.8) H 11/08/24 10:48
Hgb 11.7 g/dL (13.0-18.0) L 11/08/24 10:48
Hct 35.0 % (39.0-52.0) L 11/08/24 10:48
MCV 84.3 fL (80.0-94.0) 11/08/24 10:48
Plt Count 199 10^3/uL (130-400) D 11/08/24 10:48
Absolute Neuts (auto) 9.1 10^3/uL (1.4-6.5) H 11/08/24 10:48
PT 16.8 Sec (11.4-14.6) H 11/08/24 10:48
INR 1.34 11/08/24 10:48
Sodium 135 mmol/L (135-145) 11/08/24 10:48
Potassium 4.2 mmol/L (3.5-5.1) 11/08/24 10:48
Chloride 106 mmol/L (98-107) 11/08/24 10:48
Carbon Dioxide 17 mmol/L (22-30) L 11/08/24 10:48
BUN 29 mg/dl (9-20) H 11/08/24 10:48
Creatinine 1.2 mg/dL (0.7-1.3) 11/08/24 10:48
Calcium 7.4 mg/dl (8.4-10.2) L 11/08/24 10:48
Total Bilirubin 9.9 mg/dl (0.2-1.3) H 11/08/24 10:48
AST 124 U/L (17-59) H 11/08/24 10:48
ALT 82 U/L (0-50) H 11/08/24 10:48
Alkaline Phosphatase 200 U/L (38-126) H 11/08/24 10:48
Diagnostic Image Results:
Prior GI Procedures:
EGD:
Colonoscopy:
Assessment / Plan
-
Impression
This is a [id number][age]-year-old male who presents with complaining of epigastric pain associated with jaundice, dark urine, light-colored stools and elevated liver enzymes. GI consulted for evaluation of elevated liver enzymes
Assessment/plan
Elevated liver enzymes
Jaundiced
10/21 CT abdomen/pelvis
IMPRESSION:
No acute findings in the abdomen or pelvis, specifically no evidence of renal calculus.
Moderate colonic stool burden without evidence of obstruction.
Scattered hepatic hypodensities previously characterized as cysts and hemangiomas on prior MRI.
Stable hemoglobin
Bilirubin and urine
Resolving pneumonia, stable elevated right hemidiaphragm
Continue to trend liver enzymes
Screen for hepatitis A
Autoimmune profile including JANY, AMA, ASMA
MRI with MRCP
Fractionated bilirubin
Urine drug screen
INR
Alpha-1 antitrypsin screening
Follow labs including CBC CMP and INR
If liver enzymes continue to rise disproportionately-consider transfer to printed circuit board panels developer
Follow the workup and manage appropriately
If workup nonconclusive-would need to proceed with liver biopsy
-
-
Thank you for consultation and allowing me to participate in the patient's care. Please call the real estate operations manager GI physician during the after hours with any questions or concerns.
[2024-11-08 15:16] LABS: Hepatitis C Antibody Negative (Negative)
[2024-11-08] MEDS: NSS 1000 IV (15:38)
[2024-11-08 17:10] LABS: Hepatitis B Surface Antigen Negative (Negative)
[2024-11-08 18:00] VITALS: BMI 28.3
[2024-11-08 18:06] VITALS: BP 127/79
[2024-11-08] MEDS: VIBRAMYCIN 100 MG PO (20:17)
[2024-11-08 23:00] VITALS: BP 127/76
[2024-11-09] MEDS: NSS 1000 IV ×2 (03:59→17:12)
[2024-11-09 07:00] LABS: Hematocrit 33.5 % (39.0-52.0); Hemoglobin 11.1 g/dL (13.0-18.0); Mean Corp Hgb Conc. 33.1 g/dL (33.0-37.0); Mean Corpuscular Volume 84.8 fL (80.0-94.0); Platelet Count 150 10^3/uL (130-400); Red Cell Dist. Width 14.5 % (11.5-14.5)
[2024-11-09 07:18] LABS: ALT (SGPT) 80 U/L (0-50); AST (SGOT) 100 U/L (17-59); Albumin 2.5 g/dl (3.5-5.0); Alkaline Phosphatase 193 U/L (38-126); Blood Urea Nitrogen 31 mg/dl (9-20); Calcium 7.7 mg/dl (8.4-10.2); Carbon Dioxide 23 mmol/L (22-30); Chloride 110 mmol/L (98-107); Estimated Creatinine Clearance 75 ml/min; Glucose 91 mg/dl (70-99); Potassium 4.2 mmol/L (3.5-5.1); Sodium 138 mmol/L (135-145); Total Protein 5.7 g/dl (6.3-8.2); eGFR > 60.00
[2024-11-09 07:20] LABS: Absolute Neutrophils -Man Diff 8.1 10^3/uL (1.4-6.5)
[2024-11-09 07:21] LABS: Normal RBC Morphology No; Platelets Checked Yes; Smudge Cells Occasional; Total Cells Counted 100; Vacuolated Segs 1+
[2024-11-09 07:45] VITALS: BP 119/81
[2024-11-09 08:19] LABS: INR 1.28; PT 16.5 Sec (11.4-14.6)
--- NOTE | 2024-11-09 09:34 | W.PN.GI.CBS2 ---
Addendum entered and electronically signed by Tahira Mejía MD 11/09/24 12:12:
I saw and examined the patient.
The residents note was reviewed and I agree with the note.
Comment:
Pt with formed stool, nervous, MRI with no stones, similar cysts/hemangiomas, new hepatosplenomegaly
icteric
oriented
INR 1.28
bilirubin 12
impression:
jaundice
abnl lfts
hepatosplenomegaly (new)
Plan:
INR mildly improved, will follow
w/u in progress will add babesiosis, leptospirosis and consult ID
monitor labs and mental status
if all negative consider hematology
Original Note:
Today's Communication / Plan
-
ID consult
Follow autoimmune profile, ceruloplasmin levels, alpha 1 antitrypsin screen, iron studies
Continue to trend liver enzymes
Consider transfer to slitter helper
Assessment / Plan
-
Impression
This is a 25-[id number][id number]-year-old male who presents with complaining of epigastric pain associated with jaundice, dark urine, light-colored stools and elevated liver enzymes. GI consulted for evaluation of elevated liver enzymes
Assessment/plan
Liver enzymes are trending up
Hepatitis A, B, C-negative
Bilirubin 12
INR normal
Urine drug screen negative
Autoimmune profile including JANY, AMA, ASMA pending
Ceruloplasmin pending
Alpha 1 antitrypsin pending
Jaundiced
10/21 CT abdomen/pelvis
IMPRESSION:
No acute findings in the abdomen or pelvis, specifically no evidence of renal calculus.
Moderate colonic stool burden without evidence of obstruction.
Scattered hepatic hypodensities previously characterized as cysts and hemangiomas on prior MRI.
Stable hemoglobin
Bilirubin and urine
Resolving pneumonia, stable elevated right hemidiaphragm
11/09 MRI abdomen
IMPRESSION:
Hepatosplenomegaly which is new from prior examination and may be infectious/inflammatory or hematologic in nature. There are stable appearance of the scattered hepatic cysts as well as the hemangioma within the right hepatic lobe.
Continue to trend liver enzymes
Follow labs
ID consult
Liver biopsy
Consider transfer to slitter helper
Subjective
Subjective
Date of Service: November 09, 2024
Patient seen and examined at bedside
Appearing pale and jaundiced, no apparent distress
Reports abdominal pain, 10/18, denies any nausea or vomiting
Objective
Data Reviewed
Laboratory Data:
Laboratory Results
11/09/24 06:11
11/09/24 06:11
Laboratory Results
PT 16.5 Sec (11.4-14.6) H 11/09/24 07:41
INR 1.28 11/09/24 07:41
Total Bilirubin 12.0 mg/dl (0.2-1.3) H 11/09/24 06:11
AST 100 U/L (17-59) H 11/09/24 06:11
ALT 80 U/L (0-50) H 11/09/24 06:11
Alkaline Phosphatase 193 U/L (38-126) H 11/09/24 06:11
Vital Signs and I&O:
Vital Signs
Temp Pulse Resp BP Pulse Ox
98.9 F 99 14 119/81 94
11/08/24 23:00 11/09/24 07:45 11/09/24 07:45 11/09/24 07:45 11/09/24 07:45
I&O
11/08/24 11/09/24 11/10/24
06:59 06:59 06:59
Intake Total 720 / 720
Output Total 300 / 300
Balance 420 / 420
Physical Exam
Physical Exam
HEENT: Moist mucous membranes and Other (Appearing pale and jaundiced)
Cardiology: Normal Sinus Rhythm, S1 and S2
Pulmonary: Clear
GI: Soft, Non Distended, Tender (In epigastric region) and Normal Bowel Sounds
Extremities: No Edema and Pulses Present
Neuro: Non Focal
[2024-11-09] MEDS: MOTRIN 400 MG PO ×2 (09:37→19:52)
[2024-11-09] MEDS: VIBRAMYCIN 100 MG PO ×2 (09:37→19:52)
--- NOTE | 2024-11-09 10:15 | PTCARENOTE ---
0745 Received orders on pt for Stool to r/o C-Diff. PT will be moved to a private room.
--- NOTE | 2024-11-09 10:16 | PTCARENOTE ---
Pt moved to private room after he returned from MRI. Pt aware stool specimen is needed. Report given to SHIVAM Shipman. All belongings with pt.
[2024-11-09 12:24] LABS: Reticulocyte Count 0.9 % (0.4-2.8)
--- NOTE | 2024-11-09 12:39 | CON.ID ---
Consultation
-
Date/Time Consultation Requested: [id number]
Date/Time Consultation Performed: 11/09/2024 1137
Requesting Provider: Dr. Kinsey
Performing Provider: Dr. Tinsley
Reason for Consultation: Elevated bilirubin, hepatitis
Chief Complaint / Past History
History of Present Illness
Warren Villalobos is a 49-year-old man being evaluated at the request of Dr. Kinsey regarding transaminitis and hyperbilirubinemia. History is obtained from chart review, along with patient interview.
The patient reports that he was in his usual state of health until approximately 10/20/2024, when he developed acute onset of upper abdominal discomfort, with some radiation to his back. He initially was seen at a local urgent care center, and sent
to the emergency room for further evaluation. At that point in time he was noted to have a small degree of blood in the urine, but no other findings. He was advised to follow back with his PCP.
Later, he presented back to the urgent care center secondary to reported shortness of breath, and was diagnosed with pneumonia., And sent back to the emergency room. At this point in time he admitted to some fevers and myalgias, but his abdominal
pain improved. By this time, he had been found to have mild elevation in his LFTs, along with his bilirubin. In the ER he was found to be febrile to 100.9 degrees. There was concern for possible tickborne illness, and he was started on
doxycycline and sent home. He followed back with his PCP on 11/08, but in the office he was noted to be quite jaundiced, and was sent back to the emergency room for further evaluation.
Here, he was found to have a low-grade leukocytosis. He was now noted to have a marked increase in his bilirubin. Infectious Diseases asked to comment upon further antimicrobial therapy and diagnostic workup.
The patient reports fevers at home up to 101 degrees. He has no history of recent travel. 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
He does note that he recently has embarked on home renovation, which includes some demolition. He has been significant amount of time recently cleaning out rooms, and has noted mouse droppings.
Past History
Past Medical History: None
Past Surgical History: None
Allergy History:
Sulfa (Sulfonamide Antibiotics) Allergy (Verified 11/08/24 10:05)
Unknown
Medications Reviewed: Yes
Current Antibiotics:
Doxycycline
Social History
Tobacco: Non-Smoker
Alcohol: None
Drug: None
Personal:
Living: With Family
Employment: Employed
Review of Systems
Vital Signs
Temp Pulse Resp BP Pulse Ox
98.9 F 99 14 119/81 94
11/08/24 23:00 11/09/24 07:45 11/09/24 07:45 11/09/24 07:45 11/09/24 07:45
Physical Exam
Physical Exam
Constitutional: No Acute Distress, Comfortable and Non-toxic
Eyes: No Conjunctival Hemorrhage and Other (Marked scleral icterus)
Oral: No Thrush and No Ulcers
Cardiovascular: Regular Rate, S1/S2, S3/S4 and Murmur
Pulmonary: Clear and Non Labored; Negative Wheezes or Rales
Gastrointestinal: Non Tender, Non Distended and Normal Bowel Sounds
Extremities: Negative Edema, Clubbing or Cyanosis
Skin: Jaundice (Significant)
Neurological: Awake and Alert
Psychological: Calm
.
Lab / Diagnostic Study Results
11/09/24 06:11
11/09/24 06:11
Abs Immat Gran (auto) 0.1 10^3/uL (0-0.05) H 11/08/24 10:48
Absolute Neuts (auto) 9.1 10^3/uL (1.4-6.5) H 11/08/24 10:48
Absolute Lymphs (auto) 1.2 10^3/uL (1.2-3.4) 11/08/24 10:48
Absolute Monos (auto) 1.6 10^3/uL (0.1-0.6) H 11/08/24 10:48
Absolute Basos (auto) 0.0 10^3/uL (0-0.2) 11/08/24 10:48
Total Counted 100 11/09/24 06:11
Immature Gran % 1.2 % (0-0.5) H 11/08/24 10:48
Neutrophils % 75.9 % (42.2-75.2) H 11/08/24 10:48
Lymphocytes % 9.6 % (20.5-51.1) L 11/08/24 10:48
Monocytes % 13.0 % (1.7-9.3) H 11/08/24 10:48
Eosinophils % 0.1 % (0-6) 11/08/24 10:48
Basophils % 0.2 % (0-2) 11/08/24 10:48
Abs Neuts (Manual) 8.1 10^3/uL (1.4-6.5) H 11/09/24 06:11
Segmented Neutrophils 74 % (42-75) 11/09/24 06:11
Band Neutrophils 10 % (0-3) H 11/09/24 06:11
Lymphocytes (Manual) 8 % (20-51) L 11/09/24 06:11
Eosinophils (Manual) 2 % (0-6) 11/09/24 06:11
PT 16.5 Sec (11.4-14.6) H 11/09/24 07:41
INR 1.28 11/09/24 07:41
Ur Squamous Epith Cells 6-10 /LPF (Few) 11/08/24 10:48
Microbiology Results
Micro:
11/09/24 10:41 Salmonella/Shigella Culture - Pending
Feces/Stool Campylobacter Culture - Pending
Shiga Toxin Test - Pending
Stool Leukocytes - Final
11/09/24 10:41 Cryptosporidium/Giardia - Final
Feces/Stool Negative for Cryptosporidium and/or Giardia Lamblia
antigens.
11/08/24 13:11 Blood Parasites Smear - Final
Blood/Venous
11/08/24 10:51 Legionella Urinary Antigen - Final
Urine Negative for Legionella pneumophila Serogroup 1 antigen.
A negative result does not rule out the possiblity of
Legionella infection due to other serogroups or species of
Legionella. Clinical correlation is recommended.
11/08/24 13:10 Blood Culture - Pending
Blood/Venous
Imaging:
11/08/2024 Lingular opacity appears slightly improved in comparison to recent prior study. There is no new parenchymal opacification or vascular congestion. Mild elevation of the right hemidiaphragm is stable the cardiomediastinal silhouettes are
within the limits of normal. There is no pneumothorax, pleural effusion or mediastinal shift.
Assessment / Plan
Hyperbilirubinemia
Transaminitis
Leukocytosis; improved
Fever
Recommendations:
Continue with doxycycline 100 mg PO q12h
Trend LFT's / Bilirubin
Monitor white count and temperature curve. Follow for development of any further pulmonary symptoms.
Serology for leptospirosis has been sent. Will investigate as to whether PCR testing is available. (None available from usual [facility] reference lab).
Await other serologies.
[2024-11-09 12:54] LABS: LDH 1551 U/L (120-246)
[2024-11-09 15:00] VITALS: BP 115/72
[2024-11-09 17:28] LABS: LDH 1447 U/L (120-246)
--- NOTE | 2024-11-09 18:22 | W.PN.HOSP.TC ---
Addendum entered and electronically signed by Sheldon Anderson MD 11/09/24 22:37:
Attending Addendum-
I saw and evaluated the patient. I reviewed the resident�s note and agree with findings and plan as documented in the resident�s note. Sub: patient continues to feels weak and sluggish today. Denies fevers chills NV abd pain. Full 12 point ROS
reviewed and negative except as documented Exam: Vitals reviewed in chart GEN-jaundiced HEENT scleral icterus b/l heart RRR no MRG lungs CTA B/L abd mildly distended ND pos BS LE no edema Skin no rash appreciated, jaundiced
Plan:
#Conjugated Hyperbilirubinemia/Jaundice/Transaminitis - New
-MRCP-Hepatosplenomegaly which is new from prior examination, may be infectious/inflammatory or hematologic in nature. There are stable appearance of the scattered hepatic cysts as well as the hemangioma within the right hepatic lobe.
-Mildly enlarged right upper quadrant lymph nodes with a 1.3 cm portacaval lymph node, possibly reactive.
- with HSM suggests infiltrative disease
- Babesia smear, ehrlichiosis-P
- Total bili and direct increasing
- r/o EBV/CMV/HIV
- blood cultures-P
- IV fluids
- workup for autoimmune hepatitis and PBC-P
- GI input and ID input appreciated
- c/s heme onc will need to r/o early stage hematologic malignancy
- check periph smear misael
- monitor closely for HLH
# Resolving left lingular pneumonia
-Chest x-ray shows the pneumonia resolving
-Continue doxycycline
# Positive Lyme screen
# History of prior Lyme's disease
- Lyme screen from 11/04 is presumptive positive
- No joint pains
- Western blot- pending
- Continue doxycycline which was started 3 days ago on 11/05 for 2 weeks
# Microscopic hematuria likely from underlying liver disease
- As per urinalysis
- Urinalysis also shows bilirubin
History of hepatic hemangiomas
Full code
DVT prophylaxis-SCDs
Regular diet
ACP
Patient consented to discuss, was alone, time spent explanation of advance directives, changes in health status, patient�s health care wishes if the patient becomes unable to make health decisions, goals of care, code status, and prognosis, 'of
course i wanna be full code'- 16minutes
Time spent coordinating care, review of plan of care with resident, personally reviewed previous records in EMR, med rec, labs, radiology, d/w nursing, total time documented is exclusive of any additional time listed that was spent in advance care
planning discussion -�53 minutes
Original Note:
Today's Communication/Plan
-
Monitor patient's clinical status as various testing is completed to determine etiology of jaundice.
Continue Doxycycline for PNA.
Assessment / Plan
Assessment / Plan
# Progressive jaundice - etiology unclear - infectious vs obstructive vs malignancy, etc.�
-Recent CT scan on 10/21 negative�
-Recent ultrasound negative�
-MRI abdomen: Hepatosplenomegaly. Mildly enlarged right upper quadrant lymph nodes with a 1.3 cm portacaval lymph node. Stable appearance of hepatic cysts and hemangioma.
-Babesia smear, ehrlichiosis - PENDING�
-Blood Cultures: PENDING�
-EBV, CMV, a1AT, JANY, Ceruloplasmin, HIV - PENDING
-TBili 12.0, Direct Bili 10.5, AST 100, ALT 80
-IV fluids�
-GI, ID consulted
�
# Resolving left lingular pneumonia�
-Chest x-ray shows the pneumonia resolving (11/04-11/08)�
-Continue doxycycline 100 mg PO BID Day 09/21�
�
#Anemia
Hgb 11.1
Monitor H&H
# Positive Lyme screen�
# History of prior Lyme's disease�
-Lyme screen from 11/04 is presumptive positive likely from prior infection�
-No joint pains
-Lyme screen - positive
-Western blot - PENDING�
-Continue doxycycline 100 mg PO BID Day 09/21�
�
# Microscopic hematuria likely from underlying liver disease�
-As per urinalysis�
-Urinalysis also shows albumin
�
History of hepatic hemangiomas�
�
History of prior epigastric pain�
-Worked up with endoscopy in 2022, which was negative�
�
Full code�
DVT prophylaxis-SCDs �
Regular diet�
Anticipated Discharge: > 48 hours
Subjective/Interval History
-
Date of Service: November 09, 2024
Patient seen at the bedside on hospital day #2. Nursing reports NAEO. CARRION. Patient is feeling poorly today.
Objective Data
-
Labs:
Laboratory Results
11/09/24 11/09/24
06:11 07:41
WBC 9.7
Hgb 11.1 L
Hct 33.5 L
Plt Count 150 D
PT 16.5 H
INR 1.28
Sodium 138
Potassium 4.2
Chloride 110 H
Carbon Dioxide 23
BUN 31 H
Creatinine 1.1
Glucose 91
Calcium 7.7 L
Total Bilirubin 12.0 H
AST 100 H
ALT 80 H
Alkaline Phosphatase 193 H
Vital Signs:
Vital Signs
Temp Pulse Resp BP Pulse Ox
98.3 F 96 17 115/72 94
11/09/24 15:00 11/09/24 15:00 11/09/24 15:00 11/09/24 15:00 11/09/24 15:00
I&O
11/08/24 11/09/24 11/10/24
06:59 06:59 06:59
Intake Total 720 / 720 0 / 2300
Output Total 300 / 300
Balance 420 / 420 2300 / 2300
Review of Systems
-
History Source: Patient
Constitutional: Reports Fatigue, Night Sweats and Chills
Respiratory: Reports Trouble Breathing; Denies Cough
Cardiac: Denies Chest Pain
Abdomen/GI: Reports Abdominal Pain
Skin: Reports Other (Jaundiced)
Physical Exam
-
General: No Apparent Distress and Conversant
HEENT: Normocephalic and Atraumatic
Respiratory: Clear to Auscultation
Cardiac: Regular Rhythm; Negative Murmur, Rub or Gallop
GI: Soft and Tender (Epigastrium)
Musculoskeletal: No Edema
Skin: Jaundice
Neuro: Other (Scleral icterus)
Psych: Calm
Data Reviewed
-
Diagnostic Radiology: Report Reviewed by me
MRI: Report Reviewed by me
Labs: Labs Reviewed by me
[2024-11-09 23:15] VITALS: BP 121/76
[2024-11-10] MEDS: NSS 1000 IV ×2 (05:20→17:58)
[2024-11-10 06:48] LABS: Hematocrit 27.9 % (39.0-52.0); Hemoglobin 9.6 g/dL (13.0-18.0); Mean Corp Hgb Conc. 34.4 g/dL (33.0-37.0); Mean Corpuscular Volume 83.5 fL (80.0-94.0); Nucleated Red Blood Cells % 0 % (-); Platelet Count 110 10^3/uL (130-400); Red Cell Dist. Width 14.6 % (11.5-14.5)
[2024-11-10 07:14] LABS: Blood Urea Nitrogen 28 mg/dl (9-20); Calcium 7.3 mg/dl (8.4-10.2); Carbon Dioxide 21 mmol/L (22-30); Chloride 114 mmol/L (98-107); Estimated Creatinine Clearance 92 ml/min; Glucose 94 mg/dl (70-99); Potassium 3.8 mmol/L (3.5-5.1); Sodium 139 mmol/L (135-145); eGFR > 60.00
[2024-11-10 07:26] VITALS: BP 123/73
[2024-11-10] MEDS: VIBRAMYCIN 100 MG PO ×2 (08:19→20:07)
[2024-11-10 08:58] LABS: INR 1.26; PT 16.3 Sec (11.4-14.6)
[2024-11-10 09:22] LABS: ALT (SGPT) 59 U/L (0-50); AST (SGOT) 66 U/L (17-59); Alkaline Phosphatase 182 U/L (38-126)
--- NOTE | 2024-11-10 09:55 | CM ---
CM following for discharge planning. Pt admitted after about 3 weeks of not feeling well, seen at urgent care twice, and with fever and new jaundice was sent to the ED for evaluation.
At baseline pt is (I) amb and adls, lives with spouse.
Plan: CM will follow to coordinate all discharge planning needs as identified through hospitalization.
--- NOTE | 2024-11-10 10:16 | W.PN.GI.CBS2 ---
Addendum entered and electronically signed by Tahira Mejía MD 11/10/24 14:01:
I saw and examined the patient.
The [employer] TE[employer]ER or PA's note was reviewed and I agree with the note.
Comment:
Pt feeling better, less sob but overall still without great appetite
oriented
icteric
indication
jaundice/hyperbilirubinemia
hepatosplenomegaly
pneumonia
Plan:
1. bilirubin appears to have peaked as same today; INR still ok; continue to follow closely; pt aware he would need transfer if liver function worsens
2 Infectious w/u in process, so far primary liver disease w/u negative
3 ID following, on doxycycline
4. Heme following as well
5. diet as toleratd
Original Note:
Today's Communication / Plan
-
Etiology of multiple symptoms with marked elevated bilirubin unclear-infectious vs non infectious(liver, heme) process- vs other
babesiosis(neg parasite smear) , leptospirosis(IgM and DNA PCR pending), Brucella ab(pending), CMV/EBV pending, legionella neg
liver work up : hepatitis neg, liver serology - JANY, AMA, SLA, LKM, A1At, ceruloplasmin pending
HIV pending
cdiff cancelled, Ecoli, Giardia, crypto neg other cx pending
appreciate ID eval and for heme eval today with increased LDH and drop in platelets
remains on Doxy - abx per ID
cont regular diet as tolerated
Consider transfer to clinical research nurse if further liver decompensation -- INR current stable but some drop in platelets -trend LFT's, CBC, and INR closely
Assessment / Plan
-
Patient is a 49-year-old male, with prior history of multiple lipomas, hepatic hemangiomas and cysts, prior history of Lyme's disease treated in 2019, IBS, who was in usual state of health 2 weeks ago when he developed epigastric pain, which he
initially attributed to not eating anything that morning but it persisted, it radiated to the back but there was no nausea, vomiting, diarrhea, or any other issues so he went to urgent care who then referred him to the ER where he had his abdominal
imaging done that did not reveal anything significant except stable multiple liver hemangioma. He was trying to take it slow and rest, he did had a day where he worked out and humidity for cleaning his garage and that made him feel sick again. He
tried to cope with it but started to feel very tired, fatigued and had developed shortness of breath, low-grade fever with chills and sweats and he felt dehydrated so he went to the urgent care clinic where urine analysis was done that showed
urobilinogen, moderate bilirubin and large amount of blood. In addition a chest x-ray was done and he was diagnosed with pneumonia for which he was prescribed doxycycline 100 mg twice daily. Pt he was supposed to have an ER follow-up visit with
the primary care physician but he noticed that he was having the epigastric pain similar to that initiated his GI workup including the endoscopy and abdominal imaging. In addition he felt that his urine was very dark in color and he was having
multiple episodes of loose stools that were very light in color. He also had nausea but no vomiting. He was evaluated in the ER and his liver enzymes were elevated and blood was noticed in urine as well. He does not take any pain medications
except for Tylenol. No chronic medication or supplement. No recent travel. He drinks 2-3 times a year. Has family history of pancreatic cancer in 2 family members. tox screen neg on admission Tyelenol <10.
10/21 CT abdomen/pelvis
IMPRESSION:
No acute findings in the abdomen or pelvis, specifically no evidence of renal calculus.
Moderate colonic stool burden without evidence of obstruction.
Scattered hepatic hypodensities previously characterized as cysts and hemangiomas on prior MRI.
Stable hemoglobin
Bilirubin and urine
Resolving pneumonia, stable elevated right hemidiaphragm
11/09 MRI abdomen
IMPRESSION:
Hepatosplenomegaly which is new from prior examination and may be infectious/inflammatory or hematologic in nature. There are stable appearance of the scattered hepatic cysts as well as the hemangioma within the right hepatic lobe.
-increased LFT's with marked jaundice and elevated bili and direct bili with mild AST/ALT/alk phos elevation
-PNA
-fever
-microscopic hematuria
-hepatosplenomegaly on imaging
-thrombocytopenia
-hypoalbuminemia
-elevated ferritin
- + lyme with hx prior lyme disease
-hx multiple lipomas
-hepatic hemangiomas
-IBS
PLAN:
Etiology of multiple symptoms with marked elevated bilirubin unclear-infectious vs non infectious(liver, heme) process- vs other
babesiosis(neg parasite smear) , leptospirosis(IgM and DNA PCR pending), Brucella ab(pending), CMV/EBV pending, legionella neg
liver work up : hepatitis neg, liver serology - JANY, AMA, SLA, LKM, A1At, ceruloplasmin pending
HIV pending
cdiff cancelled, Ecoli, Giardia, crypto neg other cx pending
appreciate ID eval and for heme eval today with increased LDH and drop in platelets
remains on Doxy - abx per ID
cont regular diet as tolerated
Consider transfer to clinical research nurse if further liver decompensation -- INR current stable but some drop in platelets -trend LFT's, CBC, and INR closely
Subjective
Subjective
Date of Service: November 10, 2024
t max 99.2 but report sweats overnight, continued jaundice remains on regular diet, denies any new symptoms and slight improvement in resp status with walking to bathroom, denies photophobic or still neck
Objective
Data Reviewed
Laboratory Data:
Laboratory Results
11/10/24 05:54
11/10/24 05:54
Laboratory Results
PT 16.3 Sec (11.4-14.6) H 11/10/24 08:39
INR 1.26 11/10/24 08:39
Total Bilirubin 12.1 mg/dl (0.2-1.3) H 11/10/24 05:54
AST 66 U/L (17-59) H 11/10/24 05:54
ALT 59 U/L (0-50) H 11/10/24 05:54
Alkaline Phosphatase 182 U/L (38-126) H 11/10/24 05:54
Vital Signs and I&O:
Vital Signs
Temp Pulse Resp BP Pulse Ox
99.2 F 94 17 123/73 92
11/10/24 07:26 11/10/24 07:26 11/10/24 07:26 11/10/24 07:26 11/10/24 07:26
I&O
11/09/24 11/10/24 11/11/24
06:59 06:59 06:59
Intake Total 720 / 720 4220 / 4220
Output Total 300 / 300
Balance 420 / 420 4220 / 4220
Physical Exam
Physical Exam
HEENT: Other (marked jaundice sclera but no hemorrhage )
Cardiology: Normal Sinus Rhythm
Pulmonary: Other (decreasesd bases )
GI: Soft, Non Distended and Non Tender
Extremities: No Edema
Neuro: Non Focal
--- NOTE | 2024-11-10 10:41 | CON.ONC ---
Consultation
-
Date Consultation Requested: 11/10/24
Date Consultation Performed: 11/10/24
Impression
Impression
Acute atypical infection
Mild hepatosplenomegaly and regional adenopathy
Acute hepatitis with rising bilirubin
Monocytosis
Thrombocytosis
Splenomegaly
Multifactorial anemia
Plan
Plan
Reactive monocytosis likely secondary to primary illness
Evolving thrombocytopenia likely secondary to primary illness check DIC profile
Indirect bilirubin essentially without elevation which would review aggressive hemolysis
Check ferritin monitor LDH parameters of inflammation
Monitor CBC
Patient History
History of Present Illness
49-year-old male past medical history of Lyme disease, presenting with epigastric pain, jaundice and fatigue and fever. 2 weeks ago he began experiencing severe epigastric pain rating to the back. He that the pain was due to not eating and he got
relief after eating although the pain persisted. Fatigue started afterwards and he went to urgent care and eventually came to emergency room here on 10/[address] scan, and abdominal ultrasound which were unremarkable. He continues to have fever
a, chills, dark urine, fatigue and shortness of breath occasional dry cough. He was sent back to the emergency room per ER showed elevated bilirubin, blood and protein in the urine. Radiologic imaging showed pulmonary infiltrate. A rapid Lyme
test was positive attributes to prior Lyme's disease and he has been on doxycycline for pneumonia. He is having loose stools while on doxycycline. Leading clinical diagnosis differential includes leptospirosis testing pending.
Past-Medical/Surgical History
Past Medical History: None
Past Surgical History: None
Allergy History:
Social History
Tobacco: Non-Smoker
Alcohol: None
Drug: None
Personal:
Living: With Family
Employment: Employed
Patient Medication
�Medication �Instructions �Recorded �Confirmed �Last Taken �Type
doxycycline hyclate 100 mg capsule 100 mg PO BID Infection 11/08/24 11/08/24 11/08/24 History
ibuprofen 200 mg tablet (Advil) 400 mg PO Q8HPRN PRN mild pain 11/08/24 11/08/24 11/08/24 History
Active Medications
Generic Name Dose Route Start Last Admin
Trade Name Freq PRN Reason Stop Dose Admin
Acetaminophen 650 mg 11/08/24 15:27
Acetaminophen 325 Mg Tablet PO 12/06/24 15:26
Q4HPRN PRN
mild pain/THORPE/temp> 100.4F
Doxycycline Hyclate 100 mg 11/08/24 20:00 11/10/24 08:19
Doxycycline 100 Mg Capsule PO 100 mg
BID MAX Administration
Sodium Chloride 1,000 mls @ 80 mls/hr 11/08/24 15:27 11/10/24 05:20
Nss IV 1,000 mls
.[id number] MAX Administration
Ibuprofen 400 mg 11/08/24 14:07 11/09/24 19:52
Ibuprofen 400 Mg Tablet PO 12/06/24 14:06 400 mg
Q8HPRN PRN Administration
mild pain
Ondansetron HCl 4 mg 11/08/24 15:27
Ondansetron 4 Mg/2 Ml Vial IV 12/06/24 15:26
Q6HPRN PRN
nausea and vomiting
Physical Exam
-
Physical Exam
Constitutional: No Acute Distress, Comfortable and Non-toxic
Eyes: No Conjunctival Hemorrhage but scleral icterus noted
Oral: No Thrush and No Ulcers
Cardiovascular: Regular Rate, S1/S2, S3/S4 and Murmur
Pulmonary: Clear and Non Labored; Negative Wheezes or Rales
Gastrointestinal: Non Tender, Non Distended and Normal Bowel Sounds, splenomegaly
Extremities: Negative Edema, Clubbing or Cyanosis
Skin: Jaundice
Neurological: Awake and Alert
Psychological: Calm
Labs
Lab Results
WBC 9.3 10^3/uL (4.8-10.8) 07/03/25 05:54
RBC 3.34 10^6/uL (4.70-6.10) L 11/10/24 05:54
Hgb 9.6 g/dL (13.0-18.0) L 11/10/24 05:54
Hct 27.9 % (39.0-52.0) L 11/10/24 05:54
MCV 83.5 fL (80.0-94.0) 11/10/24 05:54
MCH 28.7 pg (27.0-31.0) 11/10/24 05:54
MCHC 34.4 g/dL (33.0-37.0) 11/10/24 05:54
RDW 14.6 % (11.5-14.5) H 11/10/24 05:54
Plt Count 110 10^3/uL (130-400) L D 11/10/24 05:54
MPV 9.5 fL (7.4-10.4) 11/10/24 05:54
Abs Immat Gran (auto) 0.3 10^3/uL (0-0.05) H 11/10/24 05:54
Absolute Neuts (auto) 5.6 10^3/uL (1.4-6.5) 11/10/24 05:54
Absolute Lymphs (auto) 1.7 10^3/uL (1.2-3.4) 11/10/24 05:54
Absolute Monos (auto) 1.5 10^3/uL (0.1-0.6) H 11/10/24 05:54
Absolute Eos (auto) 0.0 10^3/uL (0-0.7) 11/10/24 05:54
Absolute Basos (auto) 0.0 10^3/uL (0-0.2) 11/10/24 05:54
Immature Gran % 3.7 % (0-0.5) H 11/10/24 05:54
Neutrophils % 60.9 % (42.2-75.2) 11/10/24 05:54
Lymphocytes % 18.5 % (20.5-51.1) L 11/10/24 05:54
Monocytes % 16.5 % (1.7-9.3) H 11/10/24 05:54
Eosinophils % 0.1 % (0-6) 11/10/24 05:54
Basophils % 0.3 % (0-2) 11/10/24 05:54
Creatinine 0.9 mg/dL (0.7-1.3) 11/10/24 05:54
Vital Signs
Vital Signs
Temp Pulse Resp BP Pulse Ox
99.2 F 94 17 123/73 92
11/10/24 07:26 11/10/24 07:26 11/10/24 07:26 11/10/24 07:26 11/10/24 07:26
[2024-11-10 10:48] LABS: Albumin 2.0 g/dl (3.5-5.0); Total Protein 4.8 g/dl (6.3-8.2)
--- NOTE | 2024-11-10 11:41 | W.PN.HOSP.TC ---
Addendum entered and electronically signed by Sheldon Anderson MD 11/10/24 20:50:
Attending Addendum-
I saw and evaluated the patient. I reviewed the resident�s note and agree with findings and plan as documented in the resident�s note. Sub: Feels SOB and weak today. Denies fevers chills NV abd pain. Full 12 point ROS reviewed and negative except as
documented Exam: Vitals reviewed in chart GEN-jaundiced HEENT scleral icterus b/l heart RRR no MRG lungs CTA B/L abd mildly distended ND pos BS LE no edema Skin no rash appreciated, jaundiced
Plan:
#Conjugated Hyperbilirubinemia/Jaundice/Transaminitis - New
-MRCP-Hepatosplenomegaly which is new from prior examination, may be infectious/inflammatory or hematologic in nature. There are stable appearance of the scattered hepatic cysts as well as the hemangioma within the right hepatic lobe.
-Mildly enlarged right upper quadrant lymph nodes with a 1.3 cm portacaval lymph node, possibly reactive.
- with HSM suggests infiltrative disease
- Babesia smear, ehrlichiosis-P
- Total bili and direct increasing
- r/o EBV/CMV/HIV
- blood cultures-NGTD
- IV fluids
- workup for autoimmune hepatitis and PBC-P
- GI input and ID input appreciated
- heme onc input appreciated will need to r/o early stage hematologic malignancy
- check periph smear misael
- doubt HLH with high fibrinogen and mildly elevated ferritin
- viral hepatitis vs heme malig?
- CTM daily CBC CMP
# Anemia with Thrombocytopenia
- likely malig
- plt worsening now down to 110K from 326K
- cont to follow may need BM bx r/o MDS, Leukemia, lymphoma etc
-cont to follow
# Resolving left lingular pneumonia
-Chest x-ray shows the pneumonia resolving
-Continue doxycycline
# Positive Lyme screen
# History of prior Lyme's disease
- Lyme screen from 11/04 is presumptive positive
- No joint pains
- Western blot- pending
- Continue doxycycline which was started 3 days ago on 11/05 for 2 weeks
History of hepatic hemangiomas
Full code
DVT prophylaxis-SCDs
Regular diet
Time spent coordinating care, review of plan of care with resident, personally reviewed records in EMR, med rec, consults, notes, labs, radiology, d/w nursing, GI, onc � 52 mins
Original Note:
Today's Communication/Plan
-
Monitor patient's clinical status as numerous testing is completed related
Assessment / Plan
Assessment / Plan
# Conjugated hyperbilirubinemia - etiology unclear - infectious vs obstructive vs malignancy, etc.�
-MRI abdomen: Hepatosplenomegaly. Mildly enlarged right upper quadrant lymph nodes with a 1.3 cm portacaval lymph node. Stable appearance of hepatic cysts and hemangioma.
-Babesia smear, ehrlichiosis: PENDING
-Blood Cultures: PENDING�
-EBV, CMV, a1AT, JANY, Ceruloplasmin, HIV - PENDING
-Stool cx: PENDING
-TBili 12.1 (12.0 11/09), Direct Bili 11.0 (10.5 11/09), AST 66, ALT 59
-IV fluids
-GI, ID, Heme-onc consulted
�
# Resolving left lingular pneumonia�
-Chest x-ray shows the pneumonia resolving (11/04 vs 11/08)�
-Continue doxycycline 100 mg PO BID Day 10/22
�
#Thrombocytopenia
-Trend CBC
-Monitor patient's clinical status, including bleeding, brusing, petechiae, etc.
-Heme-onc consulted
#Anemia
-Hgb 9.6
-Monitor H&H
-Heme-onc consulted
# Positive Lyme screen�
# History of prior Lyme's disease�
-Lyme screen from 11/04 is presumptive positive likely from prior infection�
-No joint pains
-Lyme screen - positive
-Western blot - PENDING�
-Continue doxycycline 100 mg PO BID Day 10/22�
�
# Microscopic hematuria likely from underlying liver disease�
-As per urinalysis�
-Urinalysis also shows albumin
�
History of hepatic hemangiomas�
History of prior epigastric pain�
-Worked up with endoscopy in 2022, which was negative�
�
Full code�
DVT prophylaxis-SCDs �
Regular diet�
Anticipated Discharge: > 48 hours
Subjective/Interval History
-
Date of Service: November 10, 2024
Patient seen at the bedside hospital day #3. Nursing reports NAEO. Patient states he is 'feeling better than yesterday.' Reports less shortness of breath.
Objective Data
-
Labs:
Laboratory Results
11/10/24 11/10/24
05:54 08:39
WBC 9.3
Hgb 9.6 L
Hct 27.9 L
Plt Count 110 L D
PT 16.3 H
INR 1.26
Sodium 139
Potassium 3.8
Chloride 114 H
Carbon Dioxide 21 L
BUN 28 H
Creatinine 0.9
Glucose 94
Calcium 7.3 L
Total Bilirubin 12.1 H
AST 66 H
ALT 59 H
Alkaline Phosphatase 182 H
Vital Signs:
Vital Signs
Temp Pulse Resp BP Pulse Ox
99.9 F 94 17 123/73 92
11/10/24 11:27 11/10/24 07:26 11/10/24 07:26 11/10/24 07:26 11/10/24 07:26
I&O
11/09/24 11/10/24 11/11/24
06:59 06:59 06:59
Intake Total 720 / 720 4220 / 4220
Output Total 300 / 300
Balance 420 / 420 4220 / 4220
Review of Systems
-
History Source: Patient
Constitutional: Reports Night Sweats; Denies Fever, Fatigue or Chills
Respiratory: Denies Trouble Breathing
Cardiac: Denies Chest Pain
Abdomen/GI: Denies Abdominal Pain or Nausea
Neuro: Reports Headache
Physical Exam
-
General: No Apparent Distress
HEENT: Normocephalic and Atraumatic
Respiratory: Clear to Auscultation and Non Labored Respirations
Cardiac: Regular Rhythm; Negative Murmur, Rub or Gallop
GI: Soft, Normal Bowel Sounds, Tender (Epigastric) and Other
Musculoskeletal: No Edema
Skin: Jaundice
Neuro: AO x 3
Psych: Calm
Data Reviewed
-
Labs: Labs Reviewed by me
--- NOTE | 2024-11-10 14:23 | W.PN.ID1 ---
Date of Service
Date of Service: November 10, 2024
Today's Communication
Continue doxycycline. Await further data.
Assessment / Plan
Hyperbilirubinemia
Transaminitis
Leukocytosis; improved
Fever
Recommendations:
Continue with doxycycline 100 mg PO q12h
Trend LFT's / Bilirubin
Monitor white count and temperature curve. Follow for development of any further pulmonary symptoms.
Serology for leptospirosis has been sent. Urinary leptospirosis PCR sent.
Await other serologies.
Chief Complaint
-: Other (Hyperbilirubinemia)
Subjective / Review of Systems
Patient notes some increase in fatigue today. No other complaints.
Review of Systems: No Fever and No Chills
Vital Signs / Physical Exam
Vital Signs
Vital Signs
Temp Pulse Resp BP Pulse Ox
99.9 F 94 17 123/73 92
11/10/24 11:27 11/10/24 07:26 11/10/24 07:26 11/10/24 07:26 11/10/24 07:26
Physical Exam
Constitutional: No Acute Distress, Comfortable and Non-toxic
Eyes: Other (Scleral icterus)
Cardiovascular: S1/S2; Negative S3/S4
Pulmonary: Non Labored
Gastrointestinal: Soft and Non Distended
Skin: Jaundice
Neurological: Awake and Alert
Objective Data
Lab Data
Lab Results
11/10/24 05:54
11/10/24 05:54
PT 16.3 Sec (11.4-14.6) H 11/10/24 08:39
INR 1.26 11/10/24 08:39
Estimated Creat Clear 92 ml/min 11/10/24 05:54
Total Bilirubin 12.1 mg/dl (0.2-1.3) H 11/10/24 05:54
AST 66 U/L (17-59) H 11/10/24 05:54
ALT 59 U/L (0-50) H 11/10/24 05:54
Alkaline Phosphatase 182 U/L (38-126) H 11/10/24 05:54
Most recent labs reviewed.
Micro Results:
11/08/24 13:10 Blood Culture - Preliminary
Blood/Venous No Growth in 48 hours- Final report to follow
11/09/24 10:41 Salmonella/Shigella Culture - Preliminary
Feces/Stool Culture in Progress
Campylobacter Culture - Preliminary
Culture in Progress
Shiga Toxin Test - Final
No E. coli Shiga Toxin 1 or 2 detected.
Stool Leukocytes - Final
11/09/24 10:41 Cryptosporidium/Giardia - Final
Feces/Stool Negative for Cryptosporidium and/or Giardia Lamblia
antigens.
11/08/24 13:11 Blood Parasites Smear - Final
Blood/Venous
11/08/24 10:51 Legionella Urinary Antigen - Final
Urine Negative for Legionella pneumophila Serogroup 1 antigen.
A negative result does not rule out the possiblity of
Legionella infection due to other serogroups or species of
Legionella. Clinical correlation is recommended.
Imaging:
11/08/2024 Lingular opacity appears slightly improved in comparison to recent prior study. There is no new parenchymal opacification or vascular congestion. Mild elevation of the right hemidiaphragm is stable the cardiomediastinal silhouettes are
within the limits of normal. There is no pneumothorax, pleural effusion or mediastinal shift.
[2024-11-10 14:50] LABS: Fibrinogen 785 MG/DL (199-459)
[2024-11-10 15:42] VITALS: BP 133/79
[2024-11-10] MEDS: TYLENOL 650 MG PO (16:39)
[2024-11-10] MEDS: MOTRIN 400 MG PO (20:14)
[2024-11-11 00:43] VITALS: BP 130/71
[2024-11-11 04:43] LABS: EBV-EA (D) Ab IgG <5.0 U/mL (0.0-10.9); EBV-NA IgG >600.0 U/mL (0.0-21.9); EBV-VCA IgG Antibodies 128.0 U/mL (0.0-21.9); EBV-VCA IgM Antibodies 37.6 U/mL (0.0-43.9)
[2024-11-11 06:27] LABS: ANA, IgG Reflex to HEp-2 None Detected (None Detected)
[2024-11-11 06:45] LABS: Hematocrit 28.8 % (39.0-52.0); Hemoglobin 9.3 g/dL (13.0-18.0); Mean Corp Hgb Conc. 32.3 g/dL (33.0-37.0); Mean Corpuscular Volume 83.7 fL (80.0-94.0); Platelet Count 109 10^3/uL (130-400); Red Cell Dist. Width 14.7 % (11.5-14.5)
[2024-11-11 06:55] LABS: INR 1.25; PT 16.2 Sec (11.4-14.6)
[2024-11-11 07:07] LABS: ALT (SGPT) 79 U/L (0-50); AST (SGOT) 101 U/L (17-59); Albumin 2.0 g/dl (3.5-5.0); Alkaline Phosphatase 239 U/L (38-126); Blood Urea Nitrogen 26 mg/dl (9-20); Calcium 7.4 mg/dl (8.4-10.2); Carbon Dioxide 21 mmol/L (22-30); Chloride 113 mmol/L (98-107); Estimated Creatinine Clearance 83 ml/min; Glucose 94 mg/dl (70-99); Potassium 4.4 mmol/L (3.5-5.1); Sodium 138 mmol/L (135-145); Total Protein 4.8 g/dl (6.3-8.2); eGFR > 60.00
[2024-11-11 08:00] VITALS: BP 128/74
[2024-11-11] MEDS: VIBRAMYCIN 100 MG PO ×2 (08:16→19:48)
--- NOTE | 2024-11-11 08:20 | W.PN.GI.CBS2 ---
Addendum entered and electronically signed by Isis Stein DO 11/11/24 14:17:
Discussed case with hepatology at [facility]. No additional treatment or tests to order at this time. Advised against NAC given likely no benefit and small risk of anaphylaxis. If bili climbs at a rapid rate, will reengage regarding transfer. No need
to transfer at this time.
Original Note:
Today's Communication / Plan
-
follow labs
closely monitor cbc,cmp,lfts and inr
Assessment / Plan
-
Impression
This is a 73-on[age]-h[age]-year-old male who presents with complaining of epigastric pain associated with jaundice, dark urine, light-colored stools and elevated liver enzymes. GI consulted for evaluation of elevated liver enzymes
10/21 CT abdomen/pelvis
IMPRESSION:
No acute findings in the abdomen or pelvis, specifically no evidence of renal calculus.
Moderate colonic stool burden without evidence of obstruction.
Scattered hepatic hypodensities previously characterized as cysts and hemangiomas on prior MRI.
Stable hemoglobin
Bilirubin and urine
Resolving pneumonia, stable elevated right hemidiaphragm
11/09 MRI abdomen
IMPRESSION:
Hepatosplenomegaly which is new from prior examination and may be infectious/inflammatory or hematologic in nature. There are stable appearance of the scattered hepatic cysts as well as the hemangioma within the right hepatic lobe.
-increased LFT's with marked jaundice and elevated bili and direct bili with mild AST/ALT/alk phos elevation
-Resolving pneumonia
-fever
-microscopic hematuria
-hepatosplenomegaly on imaging
-thrombocytopenia
-hypoalbuminemia
-elevated ferritin
- + lyme with hx prior lyme disease
-hx multiple lipomas
-hepatic hemangiomas
-IBS
PLAN:
Etiology of multiple symptoms with marked elevated bilirubin unclear-infectious vs non infectious(liver, heme) process- vs other
babesiosis(neg parasite smear) , leptospirosis(IgM and DNA PCR pending), Brucella ab(pending), CMV/EBV pending, legionella neg
liver work up : hepatitis neg, liver serology - JANY(not detected), AMA, SLA, LKM, A1At, ceruloplasmin pending
HIV negative
cdiff cancelled, Ecoli, Giardia, crypto neg other cx pending
appreciate ID eval and for heme eval today with increased LDH and drop in platelets-elevated fibrinogen
remains on Doxy - abx per ID
cont regular diet as tolerated
Consider transfer to loan documents closer if further liver decompensation -- INR current stable but some drop in platelets -trend LFT's, CBC, and INR closely
Subjective
Subjective
Date of Service: November 11, 2024
Patient seen at bedside
Feels bloated,No appparent distress
Objective
Data Reviewed
Laboratory Data:
Laboratory Results
11/11/24 06:29
11/11/24 06:29
Laboratory Results
PT 16.2 Sec (11.4-14.6) H 11/11/24 06:29
INR 1.25 11/11/24 06:29
Total Bilirubin 13.8 mg/dl (0.2-1.3) H 11/11/24 06:29
AST 101 U/L (17-59) H 11/11/24 06:29
ALT 79 U/L (0-50) H 11/11/24 06:29
Alkaline Phosphatase 239 U/L (38-126) H 11/11/24 06:29
Vital Signs and I&O:
Vital Signs
Temp Pulse Resp BP Pulse Ox
99.4 F 88 22 128/74 95
11/11/24 08:00 11/11/24 08:00 11/11/24 08:00 11/11/24 08:00 11/11/24 08:00
I&O
11/10/24 11/11/24 11/12/24
06:59 06:59 06:59
Intake Total 4220 / 4220 480 / 480
Balance 4220 / 4220 480 / 480
Physical Exam
Physical Exam
HEENT: Other (Pale appearing, jaundiced)
Cardiology: Normal Sinus Rhythm
Pulmonary: Clear
GI: Soft, Non Distended, Non Tender and Normal Bowel Sounds
Extremities: No Edema
Neuro: Non Focal
--- NOTE | 2024-11-11 09:19 | W.PN.HOSP.TC ---
Addendum entered and electronically signed by Sheldon Anderson MD 11/11/24 20:59:
Attending Addendum-
I saw and evaluated the patient. I reviewed the resident�s note and agree with findings and plan as documented in the resident�s note. Sub: Feels less SOB but weaker today. Was febrile overnight. Denies chills NV abd pain. Full 12 point ROS reviewed
and negative except as documented Exam: Vitals reviewed in chart GEN-jaundiced HEENT scleral icterus b/l heart RRR no MRG lungs CTA B/L abd mildly distended ND pos BS Ext- +1 B/L LE edema Skin no rash appreciated, jaundiced
Plan:
#Conjugated Hyperbilirubinemia/Jaundice/Transaminitis - New
-MRCP-Hepatosplenomegaly which is new from prior examination, may be infectious/inflammatory or hematologic in nature. There are stable appearance of the scattered hepatic cysts as well as the hemangioma within the right hepatic lobe.
-Mildly enlarged right upper quadrant lymph nodes with a 1.3 cm portacaval lymph node, possibly reactive.
- with HSM suggests infiltrative disease
- Babesia smear, ehrlichiosis, acute viral hep panel, JANY, EBV/CMV/HIV-neg
- Total bili/direct increasing further with decreasing albumin - transfer to IMU for closer monitoring
- check CMP INR q 12
- blood cultures-NGTD
- workup for autoimmune hepatitis and PBC-P
- GI input and ID input appreciated
- heme onc input appreciated will need to r/o early stage hematologic malignancy - possibly BMbx
- doubt HLH with high fibrinogen and mildly elevated ferritin
- check Doppler hep veins and IVC r/o BC syndrome
- NAC being held for now per GI
- May need to transfer to [facility] if worsening further (encephalopathy, INR > 1.5)
# Anemia with Thrombocytopenia
- likely malig
- plt worsening now down to 109K from 326K
- cont to follow may need BM bx r/o MDS, Leukemia, lymphoma etc
-cont to follow
# Resolving left lingular pneumonia
-Chest x-ray shows the pneumonia resolving
-Continue doxycycline
# Positive Lyme screen
# History of prior Lyme's disease
- Lyme screen from 11/04 is presumptive positive
- No joint pains
- Western blot- pending
- Continue doxycycline which was started on 11/05 for 2 weeks
- ID on board
History of hepatic hemangiomas
Full code
DVT prophylaxis-SCDs
Regular diet
CC Note
Due to a high probability of clinically significant, life-threatening deterioration, the patient required a high level of preparedness to intervene emergently. I personally spent this critical care time directly and personally managing the patient.
This critical care time included obtaining a history; examining the patient; ordering and review of studies and STAT labs; arranging urgent treatment with development of a management plan; evaluation of patient's response to treatment; reassessment;
and, discussions with other providers.
This critical care time was performed to assess and manage the high probability of imminent, life-threatening deterioration that could result in multi-organ failure. It was exclusive of separately billable procedures and treating other patients and
teaching time.
Total critical care time: Approximately 31 minutes
Original Note:
Today's Communication/Plan
-
Evaluate labs, abdominal ultrasound w/ doppler to determine etiology of conjugated bilirubinemia.
Patient will be upgraded to IMU. Monitor clinical status.
Assessment / Plan
Assessment / Plan
# Conjugated hyperbilirubinemia - etiology unclear - infectious vs obstructive vs malignancy, etc.�
-MRI abdomen: Hepatosplenomegaly. Mildly enlarged right upper quadrant lymph nodes with a 1.3 cm portacaval lymph node. Stable appearance of hepatic cysts and hemangioma.
-TBili 13.8 (12.1), Direct Bili 13.2 (11.0), AST 101 (66), ALT 79 (59), Alk Phos 239 (182) trending up (priors in parentheses)
-Patient will be upgraded to the IMU 7/4 due to worsening labs w/ unknown etiology, necessitating more comprehensive monitoring
-Blood Cultures (11/08): NGTD
-HIV, babesia smear, ehrlichiosis, STEC, legionella, cryptosporidium, giardia, Hep A/B/C, CMV: Negative
-Leptospirosis, ceruloplasmin, syphilis, salmonella, campylobacter, shigella: PENDING
-EBV: indicative of prior infection, no acute infection
-Lyme: indicative of prior infection, no acute infection
-LDH elevated (1447), Reticulocytes WNL (0.9), Haptoglobin: PENDING
-INR: 1.25, fibrinogen: 785
-Ceruloplasmin, A1AT: PENDING
-Ammonia level: PENDING
-Abdominal ultrasound w/ doppler: PENDING
-IV fluids
-H/O, GI, ID following
�
# Resolving left lingular pneumonia�
-Chest x-ray shows the pneumonia resolving (11/04 vs 11/08)�
-Continue doxycycline 100 mg PO BID Day 11/21
�
#Thrombocytopenia
-Trend CBC
-Monitor patient's clinical status, including bleeding, brusing, petechiae, etc.
-Heme-onc consulted
#Anemia
-Hgb 9.3
-Monitor H&H
-Heme-onc consulted
# Positive Lyme screen�
# History of prior Lyme's disease�
-Lyme screen from 11/04 is presumptive positive likely from prior infection�
-No joint pains
-Lyme screen - positive
-Western blot - indicative of prior infection, not acute
-Continue doxycycline 100 mg PO BID Day 10/22�
�
# Microscopic hematuria likely from underlying liver disease�
-As per urinalysis�
-Urinalysis also shows albumin
-Urine protein/creatinine ratio: PENDING
�
History of hepatic hemangiomas�
History of prior epigastric pain�
-Worked up with endoscopy in 2022, which was negative�
�
Full code�
DVT prophylaxis-SCDs �
Regular diet�
Anticipated Discharge: > 48 hours
Subjective/Interval History
-
Date of Service: November 11, 2024
Patient is seen OOB and sitting in a chair on hospital day #4. Nursing reports NAEO. Patient states he is 'feeling a little better.' Patient reports he is still short of breath but improving compared to yesterday. Patient reports he slept a lot
yesterday. Patient reports a bloating sensation in his abdomen, though he is no longer having epigastric pain.
Objective Data
-
Labs:
Laboratory Results
11/11/24
06:29
WBC 9.4
Hgb 9.3 L
Hct 28.8 L
Plt Count 109 L
PT 16.2 H
INR 1.25
Sodium 138
Potassium 4.4
Chloride 113 H
Carbon Dioxide 21 L
BUN 26 H
Creatinine 1.0
Glucose 94
Calcium 7.4 L
Total Bilirubin 13.8 H
AST 101 H
ALT 79 H
Alkaline Phosphatase 239 H
Vital Signs:
Vital Signs
Temp Pulse Resp BP Pulse Ox
99.4 F 88 22 128/74 95
11/11/24 08:00 11/11/24 08:00 11/11/24 08:00 11/11/24 08:00 11/11/24 08:00
I&O
11/10/24 11/11/24 11/12/24
06:59 06:59 06:59
Intake Total 4220 / 4220 480 / 480
Balance 4220 / 4220 480 / 480
Review of Systems
-
History Source: Patient
Constitutional: Reports Fever and Chills; Denies Fatigue or Night Sweats
Respiratory: Reports Trouble Breathing (Improving compared to yesterday)
Cardiac: Denies Chest Pain
Abdomen/GI: Denies Abdominal Pain
Genitourinary: Reports Dark Urine
Skin: Denies Itching
Neuro: Denies Headache
Psych: Reports Anxious
Physical Exam
-
General: No Apparent Distress and Comfortable
HEENT: Normocephalic and Atraumatic
Respiratory: Clear to Auscultation and Non Labored Respirations
Cardiac: Regular Rhythm; Negative Murmur, Rub or Gallop
GI: Soft, Nontender and Normal Bowel Sounds
Skin: Jaundice; Negative Other (No bruising or petechiae)
Neuro: AO x 3, No Motor Deficits and Other (EOMI, visual limon intact)
Psych: Calm
Data Reviewed
-
Labs: Labs Reviewed by me and Discussed with Patient
[2024-11-11 13:01] LABS: Ammonia < 9 umol/L (9-30)
[2024-11-11 13:43] LABS: Mitochondrial M2 Ab, IgG 4.3 Units (0.0-24.9)
[2024-11-11 16:02] VITALS: BP 137/73
[2024-11-11 18:39] VITALS: BP 135/78
--- NOTE | 2024-11-11 19:18 | PTCARENOTE ---
Received from 3rd floor, IMU monitors placed- NSR 85 135/78RR23 95% on RAIR. Denies pain, skin icteric. now at bedside, tearful- emotional support provided.
[2024-11-11 20:00] VITALS: BP 133/80
[2024-11-11 22:00] VITALS: BP 133/77
[2024-11-11 22:00] LABS: INR 1.20; PT 15.5 Sec (11.4-14.6)
[2024-11-11 22:11] LABS: ALT (SGPT) 97 U/L (0-50); AST (SGOT) 140 U/L (17-59); Albumin 2.1 g/dl (3.5-5.0); Alkaline Phosphatase 320 U/L (38-126); Blood Urea Nitrogen 22 mg/dl (9-20); Calcium 7.3 mg/dl (8.4-10.2); Carbon Dioxide 20 mmol/L (22-30); Chloride 112 mmol/L (98-107); Estimated Creatinine Clearance 92 ml/min; Glucose 132 mg/dl (70-99); Potassium 4.1 mmol/L (3.5-5.1); Sodium 136 mmol/L (135-145); Total Protein 5.1 g/dl (6.3-8.2); eGFR > 60.00
[2024-11-11 22:39] LABS: LKM-1 Ab (IgG) 1.8 U (0.0-24.9); Soluble Liver Antigen Ab 2.1 U (0.0-24.9)
[2024-11-12] VITALS: BP 129/83
--- NOTE | 2024-11-12 01:23 | PTCARENOTE ---
Pt aaox3, able to make needs known. NSR on monitor. VSS. LFTs remain elevated and continue to rise. Pt skin is jaundiced. No c/o abdominal pain, abdomen soft/nontender. NPO after MN for abdominal US in am. Call hemphill within reach. Care ongoing.
[2024-11-12 02:00] VITALS: BP 120/85
[2024-11-12 03:40] LABS: Hematocrit 28.3 % (39.0-52.0); Hemoglobin 9.4 g/dL (13.0-18.0); Mean Corp Hgb Conc. 33.2 g/dL (33.0-37.0); Mean Corpuscular Volume 84.0 fL (80.0-94.0); Platelet Count 144 10^3/uL (130-400); Red Cell Dist. Width 14.9 % (11.5-14.5)
[2024-11-12 03:52] LABS: Ammonia < 9 umol/L (9-30)
[2024-11-12 04:00] VITALS: BP 127/86
[2024-11-12 05:51] LABS: Nucleated Red Blood Cells % 0 % (-)
[2024-11-12 06:00] VITALS: BP 127/82
[2024-11-12 08:00] LABS: INR 1.11; PT 14.7 Sec (11.4-14.6)
[2024-11-12 08:10] LABS: ALT (SGPT) 116 U/L (0-50); AST (SGOT) 145 U/L (17-59); Albumin 2.1 g/dl (3.5-5.0); Alkaline Phosphatase 359 U/L (38-126); Blood Urea Nitrogen 19 mg/dl (9-20); Calcium 7.7 mg/dl (8.4-10.2); Carbon Dioxide 21 mmol/L (22-30); Chloride 111 mmol/L (98-107); Estimated Creatinine Clearance 103 ml/min; Glucose 76 mg/dl (70-99); Potassium 3.9 mmol/L (3.5-5.1); Sodium 138 mmol/L (135-145); Total Protein 5.3 g/dl (6.3-8.2); eGFR > 60.00
--- NOTE | 2024-11-12 09:02 | W.PN.GI.CBS2 ---
Today's Communication / Plan
-
Supportive care. Awaiting additional results. Continue with Doxycycline
Assessment / Plan
-
49 y.o. male admitted with SOB and jaundice found to have pneumonia, hepatosplenomegaly and significantly elevated liver enzymes with working diagnosis of infectious hepatitis. Since admission, he has clinically improved but LFTs continue to rise
with new anemia and thrombocytopenia, no s/s fulminant liver failure or DIC.
--10/21 CT abdomen/pelvis
IMPRESSION:
No acute findings in the abdomen or pelvis, specifically no evidence of renal calculus.
Moderate colonic stool burden without evidence of obstruction.
Scattered hepatic hypodensities previously characterized as cysts and hemangiomas on prior MRI.
Stable hemoglobin
Bilirubin and urine
Resolving pneumonia, stable elevated right hemidiaphragm
--11/09 MRI abdomen
IMPRESSION:
Hepatosplenomegaly which is new from prior examination and may be infectious/inflammatory or hematologic in nature. There are stable appearance of the scattered hepatic cysts as well as the hemangioma within the right hepatic lobe.
PLAN:
Plan:
1. Continue to monitor LFTs, mental status and coags closely. Tbili with mild improvement today, transaminases overall the same. INR and platelets improving. Mental status intact
2. Autoimmune serologies negative thus far; awaiting remaining infectious studies
3. ID following, continue with Doxycyline
4. Hematology following, overall picture seems consistent with acute infectious process; direct biliurbinemia and hemolysis profile not consistent with DIC
5. Tolerating Diet without issue
6. Discussed with primary team nephrology consult given significant edema and protein in urine
7. syphilis and PETH added, pending
8. Discussed case with hepatology at [facility]. No role for NAC. No need to transfer patient at this time. Agreed with plan above.
Subjective
Subjective
Date of Service: November 12, 2024
Patient doing well, continues to feel better every day. Had formed brown BM last night. Bilirubin improving slightly. Many labs still in process.
Objective
Data Reviewed
Laboratory Data:
Laboratory Results
11/12/24 03:22
Laboratory Results
PT 14.7 Sec (11.4-14.6) H 11/12/24 07:32
INR 1.11 11/12/24 07:32
Total Bilirubin 12.3 mg/dl (0.2-1.3) H 11/12/24 07:32
AST 145 U/L (17-59) H 11/12/24 07:32
ALT 116 U/L (0-50) H 11/12/24 07:32
Alkaline Phosphatase 359 U/L (38-126) H 11/12/24 07:32
Vital Signs and I&O:
Vital Signs
Temp Pulse Resp BP Pulse Ox
98.2 F 89 21 127/82 97
11/12/24 07:30 11/12/24 06:00 11/12/24 06:00 11/12/24 06:00 11/12/24 06:00
I&O
11/11/24 11/12/24 11/13/24
06:59 06:59 06:59
Intake Total 480 / 480
Balance 480 / 480
Physical Exam
Physical Exam
GENERAL: In no acute distress, appears comfortable; +scleral icterus
ABDOMEN: +BS; soft, non-tender and non-distended; no rebound or guarding
SKIN: +Jaundice
--- NOTE | 2024-11-12 09:38 | W.PN.ID1 ---
Date of Service
Date of Service: November 12, 2024
Today's Communication
Continue Doxy.
Assessment / Plan
Hyperbilirubinemia
Transaminitis
Leukocytosis; improved
Fever
Recommendations:
Continue with doxycycline 100 mg PO q12h (d#4)
Trend LFT's / Bilirubin
Monitor white count and temperature curve. Follow for development of any further pulmonary symptoms.
Serology for leptospirosis has been sent. Urinary leptospirosis PCR sent.
Await other serologies.
Chief Complaint
-: Other (Hyperbilirubinemia)
Subjective / Review of Systems
Review of Systems: No Fever and No Chills
Vital Signs / Physical Exam
Vital Signs
Vital Signs
Temp Pulse Resp BP Pulse Ox
98.2 F 89 21 127/82 97
11/12/24 07:30 11/12/24 06:00 11/12/24 06:00 11/12/24 06:00 11/12/24 06:00
Physical Exam
Constitutional: No Acute Distress, Comfortable and Non-toxic
Eyes: Other (Scleral icterus)
Cardiovascular: S1/S2; Negative S3/S4
Pulmonary: Non Labored
Gastrointestinal: Soft and Non Distended
Skin: Jaundice
Neurological: Awake and Alert
Objective Data
Lab Data
Lab Results
11/12/24 03:22
PT 14.7 Sec (11.4-14.6) H 11/12/24 07:32
INR 1.11 11/12/24 07:32
Estimated Creat Clear 103 ml/min 11/12/24 07:32
Total Bilirubin 12.3 mg/dl (0.2-1.3) H 11/12/24 07:32
AST 145 U/L (17-59) H 11/12/24 07:32
ALT 116 U/L (0-50) H 11/12/24 07:32
Alkaline Phosphatase 359 U/L (38-126) H 11/12/24 07:32
Most recent labs reviewed.
Micro Results:
11/08/24 13:10 Blood Culture - Preliminary
Blood/Venous No Growth in 72 hours- Final report to follow
11/09/24 10:41 Salmonella/Shigella Culture - Final
Feces/Stool No Salmonella, Shigella, Aeromonas or Plesiomonas species
isolated.
Campylobacter Culture - Final
No Campylobacter species isolated.
Shiga Toxin Test - Final
No E. coli Shiga Toxin 1 or 2 detected.
Stool Leukocytes - Final
11/09/24 10:41 Cryptosporidium/Giardia - Final
Feces/Stool Negative for Cryptosporidium and/or Giardia Lamblia
antigens.
11/08/24 13:11 Blood Parasites Smear - Final
Blood/Venous
11/08/24 10:51 Legionella Urinary Antigen - Final
Urine Negative for Legionella pneumophila Serogroup 1 antigen.
A negative result does not rule out the possiblity of
Legionella infection due to other serogroups or species of
Legionella. Clinical correlation is recommended.
Imaging:
11/08/2024 Lingular opacity appears slightly improved in comparison to recent prior study. There is no new parenchymal opacification or vascular congestion. Mild elevation of the right hemidiaphragm is stable the cardiomediastinal silhouettes are
within the limits of normal. There is no pneumothorax, pleural effusion or mediastinal shift.
Care Review
Plan reviewed with: Physician (GI)
--- NOTE | 2024-11-12 09:41 | W.PN.HOSP.TC ---
Today's Communication/Plan
-
see bold
Assessment / Plan
Assessment / Plan
# Conjugated hyperbilirubinemia -suspected infectious versus inflammatory
-MRI abdomen: Hepatosplenomegaly. Mildly enlarged right upper quadrant lymph nodes with a 1.3 cm portacaval lymph node. Stable appearance of hepatic cysts and hemangioma.
-HIV/CMV/Babesia smear neg, Legionella/STEC/Cryptosporidium/Giardia negative, Hep panel neg, EBV+, F/u on ehrlichia, leptospirosis has been sent. Urinary leptospirosis PCR sen
-EBV: indicative of prior infection, no acute infection
-Lyme: indicative of prior infection, no acute infection
-Appreciate GI input, autoimmune serologies negative so far, follow-up infectious serologies
-Trend CMP daily, no need for every 12 hours
�
# Resolving left lingular pneumonia�
-Chest x-ray shows the pneumonia resolving (11/04 vs 11/08)�
-ID following, continue doxycycline 100 mg PO BID Day 12/22, started on 11/05
�
#Thrombocytopenia
-Appreciate heme-onc input, thrombocytopenia secondary to primary illness
#Worsening anemia
Iron studies reviewed, ferritin elevated due to inflammation
Iron low at 23, patient likely has iron deficiency anemia, which has worsened due to acute infection
Recommend oral iron supplements upon discharge, and screening colonoscopy if he has not had one
Trend hemoglobin, transfuse for hemoglobin less than 7.0
# Positive Lyme screen�
# History of prior Lyme's disease�
-Lyme screen from 11/04 is presumptive positive likely from prior infection�
-No joint pains
-Lyme screen - positive
-Western blot - indicative of prior infection, not acute
--ID following, continue doxycycline 100 mg PO BID Day 12/22, started on 11/05
�
# Proteinuria
# Microscopic hematuria
Patient with new onset proteinuria, consult nephrology
�
History of hepatic hemangiomas�
History of prior epigastric pain�
-Worked up with endoscopy in 2022, which was negative�
�
DVT prophylaxis�SCDs
Full code
Total time spent to see the patient on the floor, examine the patient, review data and lab results, discuss treatment plan with patient, nursing staff around 50 minutes.
Physical Exam
General: No acute distress
HEENT: Normocephalic, Atraumatic, anicteric sclerae, EOMI, MMM
Respiratory: Clear to Auscultation bilaterally
Cardiac: Normal S1/S2, Regular Rate and Rhythm
GI: Soft, Nontender, Nondistended, Normal Bowel Sounds
Extremities: No Clubbing, Cyanosis, or Edema
Neuro: Nonfocal/Grossly Intact
Psych: Calm, Cooperative
Derm: Jaundice
Anticipated Discharge: > 48 hours
Subjective/Interval History
-
Date of Service: November 12, 2024
Patient complains of being hungry while waiting for his abdominal ultrasound. Denies abdominal pain. No fever, no chest pain, no shortness of breath. No vomiting.
Objective Data
-
Labs:
Laboratory Results
11/11/24 11/12/24 11/12/24
21:41 03:22 07:32
WBC 7.0
Hgb 9.4 L
Hct 28.3 L
Plt Count 144 D
PT 15.5 H 14.7 H
INR 1.20 1.11
Sodium 136 138
Potassium 4.1 3.9
Chloride 112 H 111 H
Carbon Dioxide 20 L 21 L
BUN 22 H 19
Creatinine 0.9 0.8
Glucose 132 H 76
Calcium 7.3 L 7.7 L
Total Bilirubin 13.6 H 12.3 H
AST 140 H 145 H
ALT 97 H 116 H
Alkaline Phosphatase 320 H 359 H
11/12/24
20:00
WBC
Hgb
Hct
Plt Count
PT Pending
INR Pending
Sodium Pending
Potassium Pending
Chloride Pending
Carbon Dioxide Pending
BUN Pending
Creatinine Pending
Glucose Pending
Calcium Pending
Total Bilirubin Pending
AST Pending
ALT Pending
Alkaline Phosphatase Pending
Vital Signs:
Vital Signs
Temp Pulse Resp BP Pulse Ox
98.2 F 89 21 127/82 97
11/12/24 07:30 11/12/24 06:00 11/12/24 06:00 11/12/24 06:00 11/12/24 06:00
I&O
11/11/24 11/12/24 11/13/24
06:59 06:59 06:59
Intake Total 480 / 480
Balance 480 / 480
--- NOTE | 2024-11-12 10:33 | PTCARENOTE ---
Pt was NPO for abd us now cancelled. Breakfast re ordered. Pt will only Take ABT with fooed as it upsets his stomach. pt is AAAox3 pleasant and cooperative lungs are clear NSR no co of pain at this time.
[2024-11-12] MEDS: VIBRAMYCIN 100 MG PO ×2 (10:45→19:49)
[2024-11-12 10:56] LABS: Transferrin 98 mg/dL (200-360)
[2024-11-12 17:22] VITALS: BP 134/78
[2024-11-12] MEDS: LOVENOX SC (17:27)
--- NOTE | 2024-11-12 18:23 | PTCARENOTE ---
Pt now med surg , declined Lovenox as he is now mobile.
[2024-11-12] MEDS: LOVENOX 40 MG SC (19:49)
[2024-11-12 22:27] LABS: Microalb - Urine Creatinine 60.100 mg/dl
[2024-11-12 22:32] LABS: Microalbumin, Random Urine 1.3 mg/dl (0.6-1.7)
[2024-11-13 01:07] VITALS: BP 128/83
[2024-11-13 05:13] LABS: Leptospira Ab, IHA Negative
[2024-11-13 05:35] LABS: ALT (SGPT) 145 U/L (0-50); AST (SGOT) 191 U/L (17-59); Albumin 2.0 g/dl (3.5-5.0); Alkaline Phosphatase 373 U/L (38-126); Blood Urea Nitrogen 17 mg/dl (9-20); Calcium 8.0 mg/dl (8.4-10.2); Carbon Dioxide 25 mmol/L (22-30); Chloride 110 mmol/L (98-107); Estimated Creatinine Clearance 103 ml/min; Glucose 88 mg/dl (70-99); Potassium 4.4 mmol/L (3.5-5.1); Sodium 136 mmol/L (135-145); Total Protein 5.0 g/dl (6.3-8.2); eGFR > 60.00
--- NOTE | 2024-11-13 07:45 | W.PN.ID1 ---
Date of Service
Date of Service: November 13, 2024
Today's Communication
Continue antibiotics.
Assessment / Plan
Hyperbilirubinemia
Transaminitis
Leukocytosis; improved
Fever
Recommendations:
Continue with doxycycline 100 mg PO q12h (d#6)
Trend LFT's / Bilirubin. Today's bilirubin appears improved.
Monitor white count and temperature curve. Follow for development of any further pulmonary symptoms.
Leptospira IgM negative.
Urinary leptospirosis PCR pending.
Await other serologies.
Chief Complaint
-: Other (Hyperbilirubinemia)
Subjective / Review of Systems
Review of Systems: No Fever and No Chills
Vital Signs / Physical Exam
Vital Signs
Vital Signs
Temp Pulse Resp BP Pulse Ox
97.9 F 76 18 128/83 97
11/13/24 03:00 11/13/24 00:00 11/12/24 17:22 11/13/24 01:07 11/13/24 00:00
Physical Exam
Constitutional: No Acute Distress, Comfortable and Non-toxic
Eyes: Other (Scleral icterus)
Cardiovascular: S1/S2; Negative S3/S4
Pulmonary: Non Labored
Gastrointestinal: Soft and Non Distended
Skin: Jaundice
Neurological: Awake and Alert
Objective Data
Lab Data
Lab Results
11/12/24 03:22
11/13/24 04:56
PT Cancelled 11/12/24 20:00
INR Cancelled 11/12/24 20:00
Estimated Creat Clear 103 ml/min 11/13/24 04:56
Total Bilirubin 7.3 mg/dl (0.2-1.3) H 11/13/24 04:56
AST 191 U/L (17-59) H 11/13/24 04:56
ALT 145 U/L (0-50) H 11/13/24 04:56
Alkaline Phosphatase 373 U/L (38-126) H 11/13/24 04:56
Most recent labs reviewed.
Micro Results:
11/08/24 13:10 Blood Culture - Preliminary
Blood/Venous No Growth in 4 days- Final report to follow
11/09/24 10:41 Salmonella/Shigella Culture - Final
Feces/Stool No Salmonella, Shigella, Aeromonas or Plesiomonas species
isolated.
Campylobacter Culture - Final
No Campylobacter species isolated.
Shiga Toxin Test - Final
No E. coli Shiga Toxin 1 or 2 detected.
Stool Leukocytes - Final
11/09/24 10:41 Cryptosporidium/Giardia - Final
Feces/Stool Negative for Cryptosporidium and/or Giardia Lamblia
antigens.
11/08/24 13:11 Blood Parasites Smear - Final
Blood/Venous
11/08/24 10:51 Legionella Urinary Antigen - Final
Urine Negative for Legionella pneumophila Serogroup 1 antigen.
A negative result does not rule out the possiblity of
Legionella infection due to other serogroups or species of
Legionella. Clinical correlation is recommended.
Imaging:
11/08/2024 Lingular opacity appears slightly improved in comparison to recent prior study. There is no new parenchymal opacification or vascular congestion. Mild elevation of the right hemidiaphragm is stable the cardiomediastinal silhouettes are
within the limits of normal. There is no pneumothorax, pleural effusion or mediastinal shift.
[2024-11-13 08:00] VITALS: BP 115/75
--- NOTE | 2024-11-13 08:49 | W.PN.HOSP.TC ---
Today's Communication/Plan
-
see bold
Assessment / Plan
Assessment / Plan
# Conjugated hyperbilirubinemia -suspected infectious versus inflammatory
-MRI abdomen: Hepatosplenomegaly. Mildly enlarged right upper quadrant lymph nodes with a 1.3 cm portacaval lymph node. Stable appearance of hepatic cysts and hemangioma.
-HIV/CMV/Babesia smear neg, Legionella/STEC/Cryptosporidium/Giardia negative, Hep panel neg, EBV+, leptospirosis IgM neg. F/u on ehrlichia, f/u urinary leptospirosis PCR
-EBV: indicative of prior infection, no acute infection
-Lyme: indic ative of prior infection, no acute infection
-Appreciate GI input, autoimmune serologies negative so far, follow-up infectious serologies
-Trend CMP daily, no need for every 12 hours
-Bilirubin much improved today, GI has given the patient the option to be discharged, patient declines today
�
# Resolving left lingular pneumonia�
-Chest x-ray shows the pneumonia resolving (11/04 vs 11/08)�
-ID following, continue doxycycline 100 mg PO BID Day 01/22, started on 11/05
�
#Thrombocytopenia
-Appreciate heme-onc input, thrombocytopenia secondary to primary illness
#Worsening anemia
Iron studies reviewed, ferritin elevated due to inflammation
Iron low at 23, patient likely has iron deficiency anemia, which has worsened due to acute infection
Recommend oral iron supplements upon discharge, and screening colonoscopy if he has not had one
Trend hemoglobin, transfuse for hemoglobin less than 7.0
# Positive Lyme screen�
# History of prior Lyme's disease�
-Lyme screen from 11/04 is presumptive positive likely from prior infection�
-No joint pains
-Lyme screen - positive
-Western blot - indicative of prior infection, not acute
--ID following, continue doxycycline 100 mg PO BID Day 01/22, started on 11/05
�
# Proteinuria
# Microscopic hematuria
Appreciate nephrology input, serologic workup ordered
�
History of hepatic hemangiomas�
History of prior epigastric pain�
-Worked up with endoscopy in 2022, which was negative�
�
DVT prophylaxis�subcu Lovenox
Full code
Total time spent to see the patient on the floor, examine the patient, review data and lab results, discuss treatment plan with patient, nursing staff around 40 minutes.
Physical Exam
General: No acute distress
HEENT: Normocephalic, Atraumatic, anicteric sclerae, EOMI, MMM
Respiratory: Clear to Auscultation bilaterally
Cardiac: Normal S1/S2, Regular Rate and Rhythm
GI: Soft, Nontender, Nondistended, Normal Bowel Sounds
Extremities: No Clubbing, Cyanosis, or Edema
Neuro: Nonfocal/Grossly Intact
Psych: Calm, Cooperative
Derm: Jaundiced
Anticipated Discharge: Within 24 hours
Subjective/Interval History
-
Date of Service: November 12, 2024
Patient reports feeling sluggish. Denies abdominal pain, nausea, vomiting. No chest pain, no shortness of breath. No fever.
Objective Data
-
Labs:
Laboratory Results
11/12/24 11/12/24 11/12/24
03:22 07:32 20:00
WBC 7.0
Hgb 9.4 L
Hct 28.3 L
Plt Count 144 D
PT 14.7 H Cancelled
INR 1.11 Cancelled
Sodium 138 Cancelled
Potassium 3.9 Cancelled
Chloride 111 H Cancelled
Carbon Dioxide 21 L Cancelled
BUN 19 Cancelled
Creatinine 0.8 Cancelled
Glucose 76 Cancelled
Calcium 7.7 L Cancelled
Total Bilirubin 12.3 H Cancelled
AST 145 H Cancelled
ALT 116 H Cancelled
Alkaline Phosphatase 359 H Cancelled
Vital Signs:
Vital Signs
Temp Pulse Resp BP Pulse Ox
98 F 82 16 127/82 94
11/12/24 11:35 11/12/24 10:00 11/12/24 10:00 11/12/24 06:00 11/12/24 10:00
I&O
11/11/24 11/12/24 11/13/24
06:59 06:59 06:59
Intake Total 480 / 480 240 / 240
Balance 480 / 480 240 / 240
--- NOTE | 2024-11-13 08:52 | W.PN.GI.CBS2 ---
Today's Communication / Plan
-
Tbili with significant improvement today. Possible d/c later with repeat labs this week as an outpatient. Patient to discuss with .
Assessment / Plan
-
49 y.o. male admitted with SOB and jaundice found to have pneumonia, hepatosplenomegaly and significantly elevated liver enzymes with working diagnosis of infectious hepatitis. Since admission, he has clinically improved but LFTs continue to rise
with new anemia and thrombocytopenia, no s/s fulminant liver failure or DIC.
--10/21 CT abdomen/pelvis
IMPRESSION:
No acute findings in the abdomen or pelvis, specifically no evidence of renal calculus.
Moderate colonic stool burden without evidence of obstruction.
Scattered hepatic hypodensities previously characterized as cysts and hemangiomas on prior MRI.
Stable hemoglobin
Bilirubin and urine
Resolving pneumonia, stable elevated right hemidiaphragm
--11/09 MRI abdomen
IMPRESSION:
Hepatosplenomegaly which is new from prior examination and may be infectious/inflammatory or hematologic in nature. There are stable appearance of the scattered hepatic cysts as well as the hemangioma within the right hepatic lobe.
PLAN:
Plan:
1. Marked improvement in bilirubin today, transaminases overall the same. No s/s respiratory distress.
2. Autoimmune serologies negative thus far; awaiting remaining infectious studies. Leptospira IgM negative, however, still awaiting PCR
3. ID following, continue with Doxycyline-- to complete 14 day course
4. Hematology following, overall picture seems consistent with acute infectious process; direct biliurbinemia and hemolysis profile not consistent with DIC
5. Tolerating Diet without issue
6. syphilis and PETH pending
8. Discussed case with hepatology at [facility]. No role for NAC. No need to transfer patient at this time. Agreed with plan above.
Given significant improvement in total bilirubin and clinical exam without signs of respiratory distress or liver failure, discussed the option of d/c home today with repeat labs this week. Patient will disucss with his and let me know. He may
take a few more days for some of the infectious studies to result and he will be notified if he is discharged before they return.
Subjective
Subjective
Date of Service: November 13, 2024
Total bilirubin down to 7.3 today which is a significant improvement. Transaminases overall the same. Leptospira IgM negative however urinary leptospirosis PCR pending. He continues to feel improvement daily. He offers no complaints this morning.
Objective
Data Reviewed
Laboratory Data:
Laboratory Results
11/12/24 03:22
11/13/24 04:56
Laboratory Results
PT Cancelled 11/12/24 20:00
INR Cancelled 11/12/24 20:00
Total Bilirubin 7.3 mg/dl (0.2-1.3) H 11/13/24 04:56
AST 191 U/L (17-59) H 11/13/24 04:56
ALT 145 U/L (0-50) H 11/13/24 04:56
Alkaline Phosphatase 373 U/L (38-126) H 11/13/24 04:56
Vital Signs and I&O:
Vital Signs
Temp Pulse Resp BP Pulse Ox
97.9 F 76 18 128/83 97
11/13/24 03:00 11/13/24 00:00 11/12/24 17:22 11/13/24 01:07 11/13/24 00:00
I&O
11/12/24 11/13/24 11/14/24
06:59 06:59 06:59
Intake Total 480 / 480 240 / 240
Balance 480 / 480 240 / 240
Physical Exam
Physical Exam
GENERAL: In no acute distress, appears comfortable; +scleral icterus
ABDOMEN: +BS; soft, non-tender and non-distended; no rebound or guarding
SKIN: +Jaundice
[2024-11-13] MEDS: VIBRAMYCIN 100 MG PO ×2 (10:01→20:07)
--- NOTE | 2024-11-13 10:38 | W.CON.NEPH ---
Addendum entered and electronically signed by Grady Mariano MD 11/13/24 12:32:
Resident note reviewed and agreed with the following addition
Initial visit with acute abdominal pain on October 20. Cardiac etiology ruled out and discharged
He did well until 2 weeks later when he developed jaundice which was noticed by his primary care physician he was sent to the emergency room for evaluation
Just prior to that he began having some pain issues and was taking intermittent ibuprofen and Tylenol. At most ibuprofen 400 mg 3 times daily
On admission significantly elevated bilirubin and rising LFTs. Leukocytosis noted. Also developed anemia and thrombocytopenia
He was given empiric antibiotics and over his hospitalization has improved clinically. No infectious source has been identified
He was noted on urinalysis to have hematuria as well as mild proteinuria
Exam is as below with noted jaundice
Laboratory data was reviewed as listed below
Chest x-ray 11/08/2024 by my reading mild elevation right hemidiaphragm
Abdominal MRI report reviewed. No renal abnormalities, hepatosplenomegaly noted
Impression
Microscopic hematuria
Mild proteinuria
Conjugated hyperbilirubinemia
Acute hepatitis, infectious vs. autoimmune
Community-acquired pneumonia
Acute anemia, unclear etiology
Acute thrombocytopenia
Monocytosis
Splenomegaly
Hepatic hemangiomas
History of lyme disease
History of EBV
Elevated alpha-1 antitrypsin, ceruloplasmin
Plan
Normal renal function
Given microhematuria as well as mild proteinuria serologic workup as an ordered
No NSAIDs
Remains on empiric antibiotics though no causative agent known
Original Note:
Consultation
-
Date/Time Consultation Requested: 11-12-24
Date/Time Consultation Performed: 11-13-24
Requesting Provider: Dr. Fabio Buchanan
Performing Provider: Dr. Grady Mariano
Reason for Consultation: Hematuria
Medical History
-
Chief Complaint: Jaundice
History of Present Illness:
Warren Villalobos, 49-year-old, with an unremarkable medical history has had a complicated presentation. He first came to the hospital with abdominal pain radiating to the back in mid-October; found to have some hematuria and was sent home on symptom
resolution in the ED. He was fine for the next 2 weeks and had been taking ibuprofen 2-3 times a day intermittently. After that he developed shortness of breath, fever, myalgias, fatigue and apparent jaundice. In the hospital, he was found to have
significant hyperbilirubinemia, up-trending transaminitis, significant LDH elevation, acute anemia and thrombocytopenia. He was found to have a pneumonia and was febrile. Started on doxycycline. Extensive infectious and autoimmune hepatitis work-up
has returned negative, with a couple of infectious test results still pending. He has been evaluated and followed by infectious diseases, gastroenterology and hematology-oncology. He has had improvement in his symptoms and bilirubin is down-trending
(although transaminases are still rising). He has improved symptomatically, but continues to be somewhat fatigued and tired. He was noted to have blood in urine this admission as well (similar to last month), and mild proteinuria. Stable renal
function through this admission. Nephrology is consulted for their input.
Past Medical History
Past Medical History: Other (lyme)
Past Surgical History: None
Social History
Tobacco: Non-Smoker
Alcohol: None
Drug: None
Personal:
Employment: Employed
Family History
Family History: Not Pertinent
Allergies / Home Medications
Allergy/AdvReac Type Severity Reaction Status Date / Time
Sulfa (Sulfonamide Allergy Unknown Verified 11/08/24 10:05
Antibiotics)
�Medication �Instructions �Recorded �Confirmed �Type
doxycycline hyclate 100 mg capsule 100 mg PO BID Infection 11/08/24 11/08/24 History
ibuprofen 200 mg tablet (Advil) 400 mg PO Q8HPRN PRN mild pain 11/08/24 11/08/24 History
Review of Systems
-
History Source: Patient
All other systems: Negative unless noted
Constitutional: Fatigue
EENT: No Symptoms
Respiratory: No Symptoms
Cardiac: No Symptoms
Abdomen/GI: No Symptoms
: No Symptoms
Musculoskeletal: No Symptoms
Skin: No Symptoms
Neurological: No Symptoms
Endocrine: No Symptoms
Hematologic/Lymphatic: No Symptoms
Physical Exam
Vital Signs
Vital Signs
Temp Pulse Resp BP Pulse Ox
97.9 F 76 18 128/83 97
11/13/24 03:00 11/13/24 00:00 11/12/24 17:22 11/13/24 01:07 11/13/24 00:00
Lab Results
WBC 7.0 10^3/uL (4.8-10.8) 11/12/24 03:22
RBC 3.37 10^6/uL (4.70-6.10) L 11/12/24 03:22
Hgb 9.4 g/dL (13.0-18.0) L 11/12/24 03:22
Hct 28.3 % (39.0-52.0) L 11/12/24 03:22
Plt Count 144 10^3/uL (130-400) D 11/12/24 03:22
Sodium 136 mmol/L (135-145) 11/13/24 04:56
Potassium 4.4 mmol/L (3.5-5.1) 11/13/24 04:56
Chloride 110 mmol/L (98-107) H 11/13/24 04:56
Carbon Dioxide 25 mmol/L (22-30) 11/13/24 04:56
BUN 17 mg/dl (9-20) 11/13/24 04:56
Creatinine 0.8 mg/dL (0.7-1.3) 11/13/24 04:56
eGFR > 60.00 11/13/24 04:56
Glucose 88 mg/dl (70-99) 11/13/24 04:56
Calcium 8.0 mg/dl (8.4-10.2) L 11/13/24 04:56
Albumin 2.0 g/dl (3.5-5.0) L 11/13/24 04:56
Physical Exam
General: No Distress and Nontoxic
HEENT: Other (Icteric)
Respiratory: Clear and Nonlabored Respirations
Cardiac: S1/S2 and Regular Rate/Rhythm
Abdomen: Soft, Nontender, Nondistended and No Hepatosplenomegaly
Genito-urinary: No Costovertebral Tender
Musculoskeletal: No Clubbing, No Cyanosis and No Edema
Skin: No Rash, No Bruising and Other (Jaundice)
Psych: Mood/afflect pleasant and Insight/judgement good
Data Reviewed
-
Radiology: Image Personally Visualized and interpreted and Discussed with Patient
Labs: Labs Reviewed by me and Discussed with Patient
Assessment/Plan
-
Impression
Microscopic hematuria
Mild proteinuria
Conjugated hyperbilirubinemia
Acute hepatitis, infectious vs. autoimmune
Community-acquired pneumonia
Acute anemia, unclear etiology
Acute thrombocytopenia
Monocytosis
Splenomegaly
Hepatic hemangiomas
History of lyme disease
History of EBV
Plan
Renal function has remained at baseline.
Unclear etiology of his overall presentation broadens the differential.
If infectious, this can potentially be post-infectious immune-mediated disease, or glomerular/tubular insult.
Due to no clear etiology, cannot exclude autoimmune causes.
GN work-up.
Follow BMP; will need outpatient follow-up if he gets discharged.
Discontinue ibuprofen/NSAIDs for now; can use acetaminophen conservatively.
Avoid nephrotoxins.
[2024-11-13 11:25] VITALS: BP 121/86
--- NOTE | 2024-11-13 11:53 | PTCARENOTE ---
Received pt. via wheelchair from IMU. Pt. VSS, no c/o pain at this time. Call hemphill within reach.
[2024-11-13 15:55] VITALS: BP 119/80
[2024-11-13] MEDS: LOVENOX 40 MG SC (17:18)
--- NOTE | 2024-11-13 19:45 | PTCARENOTE ---
Pt walked to new room from 4E with 4E RN. Settled into room, vitals obtained.
[2024-11-13 20:18] VITALS: BP 138/81
[2024-11-13 20:19] VITALS: BMI 28.7
[2024-11-14 00:16] VITALS: BP 127/78
[2024-11-14 07:10] VITALS: BP 128/78
[2024-11-14] MEDS: VIBRAMYCIN 100 MG PO (08:07)
[2024-11-14 08:29] LABS: Hematocrit 32.3 % (39.0-52.0); Hemoglobin 10.5 g/dL (13.0-18.0); Mean Corp Hgb Conc. 32.5 g/dL (33.0-37.0); Mean Corpuscular Volume 84.8 fL (80.0-94.0); Platelet Count 337 10^3/uL (130-400); Red Cell Dist. Width 14.9 % (11.5-14.5)
--- NOTE | 2024-11-14 08:36 | W.PN.GI.CBS2 ---
Today's Communication / Plan
-
d/c home today if LFTs improve/stable from yesterday with repeat outpatient labs this week and outpatient f/u wtih Dr. Mejía.
Assessment / Plan
-
49 y.o. male admitted with SOB and jaundice found to have pneumonia, hepatosplenomegaly and significantly elevated liver enzymes with working diagnosis of infectious hepatitis. Since admission, he has clinically improved but LFTs continue to rise
with new anemia and thrombocytopenia, no s/s fulminant liver failure or DIC.
--10/21 CT abdomen/pelvis
IMPRESSION:
No acute findings in the abdomen or pelvis, specifically no evidence of renal calculus.
Moderate colonic stool burden without evidence of obstruction.
Scattered hepatic hypodensities previously characterized as cysts and hemangiomas on prior MRI.
Stable hemoglobin
Bilirubin and urine
Resolving pneumonia, stable elevated right hemidiaphragm
--11/09 MRI abdomen
IMPRESSION:
Hepatosplenomegaly which is new from prior examination and may be infectious/inflammatory or hematologic in nature. There are stable appearance of the scattered hepatic cysts as well as the hemangioma within the right hepatic lobe.
PLAN:
Plan:
1. Marked improvement in bilirubin yesterday, if AM labs show continued improvement, okay for d/c today-- will leave labslip for outpatient labs in a few days
2. Autoimmune serologies negative thus far; awaiting remaining infectious studies. Leptospira IgM negative, however, still awaiting PCR
3. ID following, continue with Doxycyline-- to complete 14 day course
4. Hematology following, overall picture seems consistent with acute infectious process; direct biliurbinemia and hemolysis profile not consistent with DIC
5. Tolerating Diet without issue
6. syphilis and PETH pending
8. Discussed case with hepatology at [facility]. No role for NAC. No need to transfer patient at this time. Agreed with plan above.
Given significant improvement in total bilirubin and clinical exam without signs of respiratory distress or liver failure, okay for d/c home today as long as labs are reassuring. He is comfortable with this plan. He will have repeat labs in a few
days as an outpatient, he will let me know where to send labs to.
Subjective
Subjective
Date of Service: November 14, 2024
Patient seen in follow-up. Feels well to go home today as long as LFTs continue to downtrend. Plts now >300K.
Objective
Data Reviewed
Laboratory Data:
Laboratory Results
11/14/24 07:45
Laboratory Results
PT Cancelled 11/12/24 20:00
INR Cancelled 11/12/24 20:00
Total Bilirubin 7.3 mg/dl (0.2-1.3) H 11/13/24 04:56
AST 191 U/L (17-59) H 11/13/24 04:56
ALT 145 U/L (0-50) H 11/13/24 04:56
Alkaline Phosphatase 373 U/L (38-126) H 11/13/24 04:56
Vital Signs and I&O:
Vital Signs
Temp Pulse Resp BP Pulse Ox
97.7 F 66 14 128/78 96
11/14/24 07:10 11/14/24 07:10 11/14/24 07:10 11/14/24 07:10 11/14/24 07:10
I&O
11/13/24 11/14/24 11/15/24
06:59 06:59 06:59
Intake Total 240 / 240 2520 / 2520
Balance 240 / 240 2520 / 2520
Physical Exam
Physical Exam
GENERAL: In no acute distress, appears comfortable; +scleral icterus
ABDOMEN: +BS; soft, non-tender and non-distended; no rebound or guarding
SKIN: +Jaundice
[2024-11-14 08:54] LABS: ALT (SGPT) 200 U/L (0-50); AST (SGOT) 240 U/L (17-59); Albumin 2.5 g/dl (3.5-5.0); Alkaline Phosphatase 479 U/L (38-126); Blood Urea Nitrogen 18 mg/dl (9-20); Calcium 8.0 mg/dl (8.4-10.2); Carbon Dioxide 25 mmol/L (22-30); Chloride 106 mmol/L (98-107); Estimated Creatinine Clearance 92 ml/min; Glucose 75 mg/dl (70-99); Potassium 4.8 mmol/L (3.5-5.1); Sodium 135 mmol/L (135-145); Total Protein 5.9 g/dl (6.3-8.2); eGFR > 60.00
--- NOTE | 2024-11-14 09:07 | W.PN.ONC2 ---
Today's Communication / Plan
-
GI and ID following
discharge planning
Impression
Impression
a/w PNA and jaundice
Acute atypical infection on doxycycline
Mild hepatosplenomegaly and regional adenopathy
Acute hepatitis with elevated LFTs -hepatomegaly 23.1cm on MRI -Tbili improved, rising transaminitis
reactive Monocytosis peak absolute monocytes 1.6 and trended down to 1.1 on 11/12 - resolved on differential toay
thrombocytopenia -resolved
Splenomegaly 14.3cm
mildly enlarged RUQ LN with a 1.3 cm portacaval lymph node, possibly reactive
Multifactorial anemia, no evidence of hemolysis -Hgb stable 10.5g/dL
Plan
Plan
Monitor CBC
Subjective/Objective
Subjective
no new complaints
denies pain or bleeding
Vital Signs:
Vital Signs
Temp Pulse Resp BP Pulse Ox
97.7 F 66 14 128/78 96
11/14/24 07:10 11/14/24 07:10 11/14/24 07:10 11/14/24 07:10 11/14/24 07:10
Lab Results:
Laboratory Data
WBC 8.1 10^3/uL (4.8-10.8) 11/14/24 07:45
Hgb 10.5 g/dL (13.0-18.0) L 11/14/24 07:45
Plt Count 337 10^3/uL (130-400) D 11/14/24 07:45
PT Cancelled 11/12/24 20:00
INR Cancelled 11/12/24 20:00
eGFR > 60.00 11/14/24 07:45
Physical Exam
HEENT: Jaundice and Moist Mucous Membranes
Pulmonary: Other (unlabored)
GI: Soft
Extremities: Pulses Present; No Edema
[2024-11-14 10:38] LABS: Nucleated Red Blood Cells % 0 % (-)
[2024-11-14 12:57] LABS: Ehrlichia chaffeensis IgM Ab < 1:16 (< 1:16)
--- NOTE | 2024-11-14 13:58 | W.PN.ID1 ---
Date of Service
Date of Service: November 14, 2024
Today's Communication
Continue doxycycline to complete an additional 3 days.
Assessment / Plan
Hyperbilirubinemia
Transaminitis
Leukocytosis; improved
Fever
Recommendations:
Continue with doxycycline 100 mg PO q12h (d#6)
Trend LFT's / Bilirubin. Today's bilirubin continues to improve.
Leptospira IgM negative, although may have been drawn too soon after start of symptoms. May consider convalescent serology.
Urinary leptospirosis PCR pending.
Chief Complaint
-: Other (Hyperbilirubinemia)
Subjective / Review of Systems
Review of Systems: No Fever and No Chills
Vital Signs / Physical Exam
Vital Signs
Vital Signs
Temp Pulse Resp BP Pulse Ox
97.7 F 66 14 128/78 96
11/14/24 07:10 11/14/24 07:10 11/14/24 07:10 11/14/24 07:10 11/14/24 07:10
Physical Exam
Constitutional: No Acute Distress, Comfortable and Non-toxic
Eyes: Other (Scleral icterus)
Pulmonary: Non Labored
Gastrointestinal: Soft and Non Distended
Skin: Jaundice (Diminished)
Neurological: Awake and Alert
Objective Data
Lab Data
Lab Results
11/14/24 07:45
11/14/24 07:45
PT Cancelled 11/12/24 20:00
INR Cancelled 11/12/24 20:00
Estimated Creat Clear 92 ml/min 11/14/24 07:45
Total Bilirubin 4.8 mg/dl (0.2-1.3) H 11/14/24 07:45
AST 240 U/L (17-59) H 11/14/24 07:45
ALT 200 U/L (0-50) H 11/14/24 07:45
Alkaline Phosphatase 479 U/L (38-126) H 11/14/24 07:45
Most recent labs reviewed.
Micro Results:
11/08/24 13:10 Blood Culture - Final
Blood/Venous No Growth - Final Report
11/09/24 10:41 Salmonella/Shigella Culture - Final
Feces/Stool No Salmonella, Shigella, Aeromonas or Plesiomonas species
isolated.
Campylobacter Culture - Final
No Campylobacter species isolated.
Shiga Toxin Test - Final
No E. coli Shiga Toxin 1 or 2 detected.
Stool Leukocytes - Final
11/09/24 10:41 Cryptosporidium/Giardia - Final
Feces/Stool Negative for Cryptosporidium and/or Giardia Lamblia
antigens.
11/08/24 13:11 Blood Parasites Smear - Final
Blood/Venous
11/08/24 10:51 Legionella Urinary Antigen - Final
Urine Negative for Legionella pneumophila Serogroup 1 antigen.
A negative result does not rule out the possiblity of
Legionella infection due to other serogroups or species of
Legionella. Clinical correlation is recommended.
Imaging:
11/08/2024 Lingular opacity appears slightly improved in comparison to recent prior study. There is no new parenchymal opacification or vascular congestion. Mild elevation of the right hemidiaphragm is stable the cardiomediastinal silhouettes are
within the limits of normal. There is no pneumothorax, pleural effusion or mediastinal shift.
--- NOTE | 2024-11-14 14:04 | W.PN.HOSP.TC ---
Addendum entered and electronically signed by Sheldon Anderson MD 11/14/24 22:50:
Attending Addendum-
I saw and evaluated the patient. I reviewed the resident�s note and agree with findings and plan as documented in the resident�s note. Sub: Feels great today. Wants to go home. Denies feversc chills NV abd pain. Full 12 point ROS reviewed and
negative except as documented Exam: Vitals reviewed in chart GEN-less jaundiced HEENT mild scleral icterus b/l heart RRR no MRG lungs CTA B/L abd non distended ND pos BS Ext- +1 B/L LE edema Skin no rash appreciated, jaundiced
Plan:
#Conjugated Hyperbilirubinemia/Jaundice/Transaminitis - New
-MRCP-Hepatosplenomegaly which is new from prior examination, may be infectious/inflammatory or hematologic in nature. There are stable appearance of the scattered hepatic cysts as well as the hemangioma within the right hepatic lobe.
-Mildly enlarged right upper quadrant lymph nodes with a 1.3 cm portacaval lymph node, possibly reactive.
- with HSM suggests infiltrative disease
- Babesia smear, ehrlichiosis, acute viral hep panel, JANY, EBV/CMV/HIV-neg
- Total bili/direct decreasing
- blood cultures-NGTD
- workup for autoimmune hepatitis and PBC-P
- mildly elevated transaminases from 11/13- f/u as OP GI aware
- GI input and ID input appreciated
- heme onc input appreciated
- likey infectious etiology?
- ok for DC from all consultants with close f/u script provided for labs
# Anemia with Thrombocytopenia
-stable
# Resolving left lingular pneumonia
-Chest x-ray shows the pneumonia resolving
-Continue doxycycline
# Positive Lyme screen
# History of prior Lyme's disease
- Lyme screen from 11/04 is presumptive positive
- No joint pains
- Western blot- pending
- Continue doxycycline which was started on 11/05 for 2 weeks
- ID on board
History of hepatic hemangiomas
Full code
DVT prophylaxis-SCDs
Regular diet
Dispo DC home today
Time spent coordinating care, DC planning, review of DC plan of care with resident, transition of care, review of records, med rec/scripts sent electronically, consults, notes, d/w consultants, nursing, family, and CM� 32 mins >50% of this time was
devoted to counseling and coordination of care
Original Note:
Today's Communication/Plan
-
Continue Doxycycline for PNA/Lyme. Monitor clinical status.
Plan for discharge to home later today.
Assessment / Plan
Assessment / Plan
# Conjugated hyperbilirubinemia - etiology unclear - infectious vs obstructive vs malignancy, etc.�
-MRI abdomen: Hepatosplenomegaly. Mildly enlarged right upper quadrant lymph nodes with a 1.3 cm portacaval lymph node. Stable appearance of hepatic cysts and hemangioma.
-TBili 4.8, improving from 7.3 yesterday and 13.8 on Thursday
-AST 240 (191), ALT 200 (145), Alk Phos 479 (373) trending up slightly (priors in parentheses)\\
-Blood Cultures (11/08): No growth
-Workup for acute infectious, infiltrative, and autoimmune etiologies negative to date
-EBV: indicative of prior infection, no acute infection
-Lyme: indicative of prior infection, no acute infection
-Ceruloplasmin, A1AT: elevated, not suggestive of Abdirashid disease or A1AT deficiency, respectively
-Ammonia level < 9 umol/L
-Patient is improving clinically, with AFVSS, increased strength, decreasing jaundice
-H/O, GI, ID following
�
# Resolving left lingular pneumonia�
-Chest x-ray shows the pneumonia resolving (11/04 vs 11/08)�
-Continue doxycycline 100 mg PO BID Day 03/24
�
#Thrombocytopenia
-Trend CBC
-Plt 339 today, increased from 109 11/11
-No signs of active bleeding, monitor clincal status
-Heme-onc consulted
#Anemia
-Hgb 10.5, stable
-Monitor H&H
-Heme-onc consulted
# Positive Lyme screen�
# History of prior Lyme's disease�
-Lyme screen from 11/04 is presumptive positive likely from prior infection�
-No joint pains
-Lyme screen - positive
-Western blot - indicative of prior infection, not acute
-Continue doxycycline 100 mg PO BID Day 03/24�
�
# Microscopic hematuria likely from underlying liver disease�
-As per urinalysis�
-Urinalysis also shows albumin
-Urine protein/creatinine ratio: PENDING
�
History of hepatic hemangiomas�
History of prior epigastric pain�
-Worked up with endoscopy in 2022, which was negative�
�
Full code�
DVT prophylaxis-SCDs �
Regular diet�
Anticipated Discharge: Today
Subjective/Interval History
-
Date of Service: November 14, 2024
Patient is seen at the bedside on hospital day #7. Nursing reports NAEO. Patient reports that he improved over the weekend. He feels stronger today. Patient is eating well, urinating clear and stem frazer urine, and producing regular bowel movements
with normal color. Patient amenable to discharge home.
Objective Data
-
Labs:
Laboratory Results
11/14/24
07:45
WBC 8.1
Hgb 10.5 L
Hct 32.3 L
Plt Count 337 D
Sodium 135
Potassium 4.8
Chloride 106
Carbon Dioxide 25
BUN 18
Creatinine 0.9
Glucose 75
Calcium 8.0 L
Total Bilirubin 4.8 H
AST 240 H
ALT 200 H
Alkaline Phosphatase 479 H
Vital Signs:
Vital Signs
Temp Pulse Resp BP Pulse Ox
97.7 F 66 14 128/78 96
11/14/24 07:10 11/14/24 07:10 11/14/24 07:10 11/14/24 07:10 11/14/24 07:10
I&O
11/13/24 11/14/24 11/15/24
06:59 06:59 06:59
Intake Total 240 / 240 2520 / 2520
Balance 240 / 240 2520 / 2520
Review of Systems
-
History Source: Patient
Constitutional: Denies Fever, Fatigue, Night Sweats or Chills
EENT: Reports No Symptoms Reported
Respiratory: Denies Cough or Trouble Breathing
Cardiac: Denies Chest Pain or Palpitations
Abdomen/GI: Denies Abdominal Pain, Nausea, Vomiting, Diarrhea or Bloated
Genitourinary: Denies Dysuria, Difficulty Voiding or Dark Urine (Clearer and stem frazer than recent days)
Musculoskeletal: Reports Edema
Neuro: Denies Weakness or Numbness
Endocrine: Reports No Symptoms
Hematologic / Lymphatic: Reports No Symptoms
Physical Exam
-
General: No Apparent Distress and Comfortable
HEENT: Normocephalic and Atraumatic
Respiratory: Clear to Auscultation and Non Labored Respirations; Negative Wheezes or Crackles
Cardiac: Regular Rhythm and S1/S2; Negative Murmur, Rub or Gallop
GI: Soft, Nontender, Nondistended and Normal Bowel Sounds
Musculoskeletal: Edema, Right Lower Extrem (Trace pitting pedal edema) and Edema, Left Lower Extrem (Trace pitting pedal edema)
Skin: Warm, Dry and Jaundice (Significant improvement from prior days)
Neuro: AO x 3, No Motor Deficits, Nonfocal/Grossly Intact, No Sensory Deficits and Other (Scleral icterus, improving from prior days)
Psych: Calm
[2024-11-14 15:00] VITALS: BP 121/71
--- NOTE | 2024-11-14 16:19 | CM ---
CM reviewed chart, patient seen bedside, for discharge today. Patient confirms transportation home, denies needs. CM will continue to follow for all discharge planning needs.
Plan; home no needs.
--- NOTE | 2024-11-14 17:01 | W.PN.NEPH.PH ---
Today's Communication / Plan
-
ok for d/c
Assessment/Plan
-
Impression
Microscopic hematuria
Mild proteinuria
Conjugated hyperbilirubinemia
Acute hepatitis, infectious vs. autoimmune
Community-acquired pneumonia
Acute anemia, unclear etiology
Acute thrombocytopenia
Monocytosis
Splenomegaly
Hepatic hemangiomas
History of lyme disease
History of EBV
Plan
Renal function has remained at baseline.
Unclear etiology of his overall presentation broadens the differential.
If infectious, this can potentially be post-infectious immune-mediated disease, or glomerular/tubular insult.
Due to no clear etiology, cannot exclude autoimmune causes. pending serologies, normal complements
UA microhematuria and U PCR only 300mg/gm of cr-need to have repeat labs as out pt
Discontinue ibuprofen/NSAIDs for now; can use acetaminophen conservatively.
Avoid nephrotoxins.
abx per ID on Doxy
f/u nephro
-
-
Date of Service: November 14, 2024
CC / HPI / ROS
-
Chief Complaint:
microhematuria, proteinuria
History of Present Illness:
Bp stable, no fever
LFTs remain high
Review of Systems:
no cp or osb
no rash
no n/v
no dysuria
Labs
-
Labs:
WBC 8.1 10^3/uL (4.8-10.8) 11/14/24 07:45
RBC 3.81 10^6/uL (4.70-6.10) L 11/14/24 07:45
Hgb 10.5 g/dL (13.0-18.0) L 11/14/24 07:45
Hct 32.3 % (39.0-52.0) L 11/14/24 07:45
Plt Count 337 10^3/uL (130-400) D 11/14/24 07:45
Sodium 135 mmol/L (135-145) 11/14/24 07:45
Potassium 4.8 mmol/L (3.5-5.1) 11/14/24 07:45
Chloride 106 mmol/L (98-107) 11/14/24 07:45
Carbon Dioxide 25 mmol/L (22-30) 11/14/24 07:45
BUN 18 mg/dl (9-20) 11/14/24 07:45
Creatinine 0.9 mg/dL (0.7-1.3) 11/14/24 07:45
eGFR > 60.00 11/14/24 07:45
Glucose 75 mg/dl (70-99) 11/14/24 07:45
Calcium 8.0 mg/dl (8.4-10.2) L 11/14/24 07:45
Albumin 2.5 g/dl (3.5-5.0) L 11/14/24 07:45
Physical Exam
-
Vital Signs:
Vital Signs
Temp Pulse Resp BP Pulse Ox
97.5 F 68 16 121/71 97
11/14/24 15:00 11/14/24 15:00 11/14/24 15:00 11/14/24 15:00 11/14/24 15:00
Cardiovascular:: Regular rate and rhythm
Respiratory:: Bilateral: CTA
Lung Excursion:: Normal
Abdomen:: Nontender and Soft
Extremity Edema:: None: Bilateral:
Busch Catheter: No
--- NOTE | 2024-11-14 19:22 | W.DCSUMMARY ---
Addendum entered and electronically signed by Sheldon Anderson MD 11/14/24 22:51:
Read, reviewed, and agree. See same day progress note for additional details.
Tin Anderson MD
Original Note:
Documented by User: Emmett Salamanca MD, Resident 11/14/24 19:39
Discharge Summary
Discharge Data
Date of Admission: 11/08/24
Date of Discharge: 11/14/24
-
Pending Results: No
Hospital Course
Discharging Physician : Emmett Salamanca MD; Sheldon Anderson MD
Disposition : Home
Primary care physician : � � �Dr. Elliot Ballesteros
Principal Discharge diagnosis : Conjugated hyperbilirubinemia; pneumonia; anemia; thrombocytopenia
Chronic Discharge diagnosis : N/A
Hospital Course : Patient presented to the [place] emergency department because of jaundice and epigastric pain. Patient's lab work showed significant progressive hyperbilirubinemia, with total bilirubin and direct bilirubin rising to levels of
13.8 and 13.2 at their peaks, respectively. Additionally, the patient's lab work showed abnormal liver function tests, with AST, ALT and alkaline phosphatase values peaking at 240, 200, and 479, respectively. The patient's bilirubin levels
decreased after reaching their peaks this previously mentioned, with total bilirubin decreasing to 4.8 on the final day of hospitalization. Based on these lab values and the patient's clinical status, an extensive workup was conducted by
hospitalist, gastroenterology, hematology�oncology, and infectious disease teams. Various testing was done in attempt to elucidate an infectious, autoimmune, obstructive, or infiltrative etiology of the patient's hyperbilirubinemia. At the time of
discharge, testing had not yet revealed any etiology. 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
In addition to the hyperbilirubinemia detailed above, the patient was also found to have a lingular pneumonia, which was shown to be improving relative to a prior hospital stay when the pneumonia was first diagnosed. The patient continued his
antibiotic regimen of doxycycline 100 mg p.o. twice daily during this hospital course, and he will finish the 14-day antibiotic regimen in the coming days.
Finally, the patient was also found to have anemia and thrombocytopenia in the setting of hepatosplenomegaly. The patient remained clinically stable, and the patient's hemoglobin and platelet levels stabilized in the days leading up to discharge.
Important imaging findings : �
Chest X-Ray - Impression: Slightly improved lingular opacity in comparison to most recent prior study, most likely representing resolving pneumonia and/or subsegmental atelectasis.
MRI Abdomen - Impression: Hepatosplenomegaly which is new from prior examination and may be infectious/inflammatory or hematologic in nature. There are stable appearance of the scattered hepatic cysts as well as the hemangioma within the right
hepatic lobe.
Procedure findings : N/A
Discharge Plan
-
Patient Disposition: Home (Routine Discharge)
Discharge Diagnosis/Procedures: Conjugated hyperbilirubinemia; transaminitis; pneumonia
Condition: Fair
Diet: As tolerated
Activity: As tolerated
Driving Restrictions: As prior to admission
Bathing Restrictions: None
Blood Work: Follow-up CBC, CMP on Thursday (11/18)
Follow-up gastroenterology appointment with Dr. Tahira Mejía
Referrals:
Elliot Ballesteros DO [Family Provider, [facility]]
Additional Discharge Medication Instructions: Continue doxycycline hyclate 100 mg PO BID until 11/18
Prescriptions:
Continued
ibuprofen [Advil] 200 mg Tablet
400 mg PO Q8HPRN PRN (Reason: mild pain)
doxycycline hyclate 100 mg capsule
100 mg PO BID 4 Days Qty: 7 0RF
Rx Instructions:
for 14 days starting 11/04/24
Discharge Orders:
Discharge Patient (As Directed); Ordered 11/14/24
Ordered By: Emmett Salamanca
Discharge Date and Time
Discharge Date/Time: 11/14/24 17:13
Print Language: HAITIAN

Documented by User: Sheldon Anderson MD 11/14/24 22:44
Discharge Summary
Discharge Data
Date of Admission: 11/08/24
Date of Discharge: 11/14/24
Discharge Plan
-
Patient Disposition: Home (Routine Discharge)
Discharge Diagnosis/Procedures: Conjugated hyperbilirubinemia; transaminitis; pneumonia
Condition: Fair
Diet: As tolerated
Activity: As tolerated
Driving Restrictions: As prior to admission
Bathing Restrictions: None
Blood Work: Follow-up CBC, CMP on Thursday (11/18)
Follow-up gastroenterology appointment with Dr. Tahira Mejía
Referrals:
Elliot Ballesteros DO [Family Provider, [facility]]
Additional Discharge Medication Instructions: Continue doxycycline hyclate 100 mg PO BID until 11/18
Prescriptions:
Continued
ibuprofen [Advil] 200 mg Tablet
400 mg PO Q8HPRN PRN (Reason: mild pain)
doxycycline hyclate 100 mg capsule
100 mg PO BID 4 Days Qty: 7 0RF
Rx Instructions:
for 14 days starting 11/04/24
Discharge Orders:
Discharge Patient (As Directed); Ordered 11/14/24
Ordered By: Emmett Salamanca
Discharge Date and Time
Discharge Date/Time: 11/14/24 17:13
Print Language: HAITIAN
[2024-11-15 17:15] LABS: Syphilis/T. pallidum Ab Reflex Negative (Negative)
[2024-11-17 00:15] LABS: 24 Hour Urine Total Volume Random mL; Urine Collection Length Random hr
[2024-11-17 01:45] LABS: Serine Protease-3, IgG 0 AU/mL (0-19)
[2024-11-17 12:28] LABS: Albumin 2.02 g/dL (3.75-5.01); SPEP IFE Reflex IFE Done; Total Protein-Electrophoresis 5.5 g/dL (6.3-8.2)
== END 2024-11-14 17:13 | disposition home or self-care (01) | DRG 441 ==
LOC: 4 WEST ACU 13:02
PROVIDERS: Family Medicine; Internal Medicine; Nurse Practitioner; Nurse Practitioner Adult Health; ADMITTING PHYSICIAN Hospitalist; ATTENDING PHYSICIAN Family Medicine; CONSULT PHYSICIAN Internal Medicine; CONSULT PHYSICIAN Internal Medicine Hematology & Oncology; CONSULT PHYSICIAN Specialist; EMERGENCY PHYSICIAN Emergency Medicine; FAMILY PHYSICIAN Family Medicine; OTHER PHYSICIAN Internal Medicine Infectious Disease
DX: E80.6 Other disorders of bilirubin metabolism (principal); J18.9 Pneumonia, unspecified organism; D64.9 Anemia, unspecified; D69.59 Other secondary thrombocytopenia; D18.03 Hemangioma of intra-abdominal structures; K76.89 Other specified diseases of liver; Z86.19 Personal history of other infectious and parasitic diseases; Z80.0 Family history of malignant neoplasm of digestive organs; Z88.2 Allergy status to sulfonamides; R31.29 Other microscopic hematuria; D72.821 Monocytosis (symptomatic); D75.839 Thrombocytosis, unspecified; F32.A Depression, unspecified; F41.9 Anxiety disorder, unspecified; Z80.1 Family history of malignant neoplasm of trachea, bronchus and lung
CPT/HCPCS: 71046; 74183; 80053; 80143; 80306; 81003; 81015; 82043; 82103; 82140; 82248; 82390; 82570; 82728; 82805; 83010; 83516; 83520; 83540; 83550; 83615; 84155; 84156; 84165; 84466; 85025; 85027; 85045; 85384; 85610; 86038; 86160; 86335; 86376; 86381; 86644; 86645; 86663; 86664; 86665; 86666; 86705; 86706; 86709; 86720; 86780; 86803; 87015; 87040; 87045; 87046; 87207; 87328; 87329; 87340; 87389; 87427; 87449; 89055; 96360; 96361; 99284; A9575

== ENCOUNTER → 2024-11-18 07:15 | Outpatient (REF) | payer OTHER, SELFPAY ==
[2024-11-18 08:36] LABS: Hematocrit 35.6 % (39.0-52.0); Hemoglobin 11.4 g/dL (13.0-18.0); Mean Corp Hgb Conc. 32.0 g/dL (33.0-37.0); Mean Corpuscular Volume 87.9 fL (80.0-94.0); Nucleated Red Blood Cells % 0 % (-); Platelet Count 695 10^3/uL (130-400); Red Cell Dist. Width 15.9 % (11.5-14.5)
[2024-11-18 08:55] LABS: ALT (SGPT) 192 U/L (0-50); AST (SGOT) 105 U/L (17-59); Albumin 3.3 g/dl (3.5-5.0); Alkaline Phosphatase 484 U/L (38-126); Blood Urea Nitrogen 21 mg/dl (9-20); Calcium 8.4 mg/dl (8.4-10.2); Carbon Dioxide 27 mmol/L (22-30); Chloride 103 mmol/L (98-107); Glucose 95 mg/dl (70-99); Potassium 4.9 mmol/L (3.5-5.1); Sodium 135 mmol/L (135-145); Total Protein 7.0 g/dl (6.3-8.2); eGFR > 60.00
== END ==
LOC: REG 07:15
PROVIDERS: Family Medicine; FAMILY PHYSICIAN Family Medicine; OTHER PHYSICIAN Internal Medicine
DX: R17 Unspecified jaundice (principal); D69.6 Thrombocytopenia, unspecified
CPT/HCPCS: 36415; 80053; 85025